=== PATIENT | female | born 1930 | race Hispanic/Latino ===

== ENCOUNTER 2018-10-26 14:06 | Inpatient (IN) | payer MEDICARE, BC ==
--- NOTE | 2018-10-26 15:15 | RAD ---
Date of service: 10/26/2018 HISTORY: dyspnea COMPARISON: 01/07/2016 FINDINGS: LUNGS: The lungs are hyperinflated and there is peribronchial thickening with chronic changes in both lungs. There are chronic changes in both lungs. Focal consolidation. PLEURA: No pleural effusions or pneumothorax. CARDIOVASCULAR: The heart is normal in size. There are aortic atherosclerotic calcifications present. OSSEOUS STRUCTURES: Within normal limits for the patient's age. VISUALIZED UPPER ABDOMEN: Normal. OTHER FINDINGS: None. IMPRESSION: No active pulmonary disease. COPD.
[2018-10-26 15:19] LABS: BASO # 0.02 K/mm3 (0.0-2.0); BASO % 0.1 % (0.0-3.0); HEMOGLOBIN 13.1 g/dL (12.0-16.0); LYMPH # 1.2 (1.2-3.4); LYMPH % 4.5 % (22.0-35.0); MEAN CELL VOLUME 89.4 fl (80.0-105.0); MEAN CORPUSCULAR HEMOGLOBIN 30.2 pg (25.0-35.0); MEAN CORPUSCULAR HGB CONC 33.8 g/dl (31.0-37.0); MEAN PLATELET VOLUME 10.1 fl (7.0-11.0); MONO # 1.6 (0.1-0.6); MONO % 6.1 % (1.0-6.0); PLATELET COUNT 254 10^3/uL (120.0-450.0); RBC 4.34 10^6/uL (3.5-6.1); RED CELL DISTRIBUTION WIDTH 14.3 % (11.5-14.5)
[2018-10-26 15:24] LABS: WHITE BLOOD COUNT 26.6 10^3/uL (4.5-11.0)
[2018-10-26 15:47] LABS: ALB/GLOB RATIO 1.2 (1.1-1.8); ALBUMIN 4.2 g/dL (3.0-4.8); ALT/SGPT 65 U/L (7-56); AST/SGOT 72 U/L (14-36); B-TYPE NATRIURETIC PEPTIDE 14900 pg/mL (0-450); BLOOD UREA NITROGEN 16 mg/dL (7-21); CALCIUM 9.3 mg/dL (8.4-10.5); GFR NON-AFRICAN AMERICAN > 60; TROPONIN I 0.56 ng/mL
[2018-10-26 15:48] LABS: VENOUS BLOOD GAS PO2 31 mm/Hg (30-55); VENOUS BLOOD PH 7.25 (7.32-7.43)
[2018-10-26] MEDS ORDERED: Azithromycin 500MG/NS 250ml 500 MG/250 ML BAG IVPB STA (15:49)
[2018-10-26] MEDS: Albuterol-Ipratrop 3 mg / 0.5 (3 ml) UD IH SCH ×3 (15:52→16:26)
[2018-10-26 15:57] LABS: LARGE PLATELETS PRESENT; LYMPHOCYTE 4 % (22.0-35.0); MONOCYTE 6 % (1.0-6.0); NEUTROPHIL 90 % (50.0-70.0); PLATELET ESTIMATE NORMAL (NORMAL)
--- NOTE | 2018-10-26 16:05 | ED PDOC ---
Arrival/HPI - General Chief Complaint: Shortness Of Breath Time Seen by Provider: 10/26/18 14:32 Historian: Patient - History of Present Illness Narrative History of Present Illness (Text): 10/26/18 16:05 88 year old female, whose past medical history is significant for CHF and emphysema, who presents to the emergency department complaining of acute dyspnea beginning last night. Patient reports chronic edema of legs. Patient endorses seeing his PCP recently, where everything was reported normal. He denies any fever, chills, chest pain, sick contact, recent travel, changes in medications, or any other complaints. Time/Duration: 24 hours Symptom Onset: Gradual Symptom Course: Unchanged Activities at Onset: Rest Context: Home Past Medical History - Provider Review Nursing Documentation Reviewed: Yes - Travel History Have you recently traveled outside [place] w/in the past 3 mons?: No - Infectious Disease Hx of Infectious Diseases: None - Tetanus Immunization Tetanus Immunization: Unknown - Reproductive Menopause: No - Cardiac Hx Pacemaker: No Hx Peripheral Vascular Disease: Yes - Pulmonary Hx Chronic Obstructive Pulmonary Disease (COPD): Yes - Neurological Hx Paralysis: No - HEENT Hx Cataracts: Yes (bilateral 2 yrs ago) - Endocrine/Metabolic Hx Endocrine Disorders: No - Hematological/Oncological Hx Blood Transfusions: No Hx Blood Transfusion Reaction: No - Musculoskeletal/Rheumatological Hx Falls: No - Gastrointestinal Hx Gastrointestinal Disorders: Yes - Genitourinary/Gynecological Hx Genitourinary Disorders: Yes (UTI,URGENCY) Hx Reproductive Disorders: No - Psychiatric Hx Depression: No Hx Emotional Abuse: No Hx Physical Abuse: No Hx Substance Use: No - Anesthesia Hx Anesthesia Reactions: No - Suicidal Assessment Feels Threatened In Home Enviroment: No Family/Social History - Physician Review Nursing Documentation Reviewed: Yes Family/Social History: Unknown Family HX Smoking Status: Former Smoker Hx Alcohol Use: No Hx Substance Use: No Hx Substance Use Treatment: No Allergies/Home Meds Allergies/Adverse Reactions: Allergies No Known Allergies Allergy (Verified 01/07/16 18:03) Home Medications: Home Meds Medication Instructions Recorded Confirmed Furosemide [Lasix] 20 mg PO DAILY 03/22/12 10/26/18 Glimepiride [Amaryl] 2 mg PO DAILY 03/22/12 10/26/18 Simvastatin [Zocor] 40 mg PO DAILY 03/22/12 10/26/18 Aspirin 81 mg PO DAILY 12/12/13 10/26/18 Review of Systems - Physician Review All systems were reviewed & negative as marked: Yes - Review of Systems Constitutional: absent: Fevers Respiratory: SOB. absent: Cough Cardiovascular: absent: Chest Pain Gastrointestinal: absent: Abdominal Pain Physical Exam Vital Signs Reviewed: Yes Vital Signs Temp Pulse Resp BP Pulse Ox 10/26/18 15:49 24 97 10/26/18 15:10 97.6 F 105 H 18 142/72 95 10/26/18 14:29 97.6 F 103 H 24 143/80 99 Temperature: Afebrile Blood Pressure: Normal Pulse: Tachycardic (slightly tachcardic) Respiratory Rate: Normal Appearance: Positive for: Well-Appearing, Non-Toxic, Comfortable Pain Distress: None Mental Status: Positive for: Alert and Oriented X 3 - Systems Exam Head: Present: Atraumatic, Normocephalic Pupils: Present: PERRL Extroacular Muscles: Present: EOMI Conjunctiva: Present: Normal Mouth: Present: Moist Mucous Membranes Neck: Present: Normal Range of Motion Respiratory/Chest: Present: Clear to Auscultation, Good Air Exchange, Wheezes (expiratory wheezes bilaterally ), Tachypneic, Other (labored breathing). No: Respiratory Distress, Accessory Muscle Use Cardiovascular: Present: Regular Rate and Rhythm, Normal S1, S2. No: Murmurs Abdomen: No: Tenderness, Distention, Peritoneal Signs Back: Present: Normal Inspection Upper Extremity: Present: Normal Inspection. No: Cyanosis, Edema Lower Extremity: Present: Normal Inspection, Other (pitting edema from ankles to mid calf). No: Edema Neurological: Present: Speech Normal Skin: Present: Warm, Dry, Normal Color. No: Rashes Psychiatric: Present: Alert, Oriented x 3, Normal Insight, Normal Concentration Medical Decision Making ED Course and Treatment: 10/26/18 16:03 Impression: 88 year old female presents to the emergency department complaining of acute SOB since last night. Differential Diagnosis included but are not limited to: --COPD exacerbation --PNA --Sepsis Plan: -- Chest X-ray -- CT chest -- Aspirin -- Albuterol -- Labs --Rocephin -- Blood culture -- Urine culture -- IV Fluids -- Zithromax -- SOLU-Medrol -- VBG shock -- Reassess and disposition Prior Visits: Notes and results from previous visits were reviewed. Progress Notes: 10/26/18 16:10 Put patient on BIPAP immediately after noting accessory muscle use and tachypnea. 10/26/18 18:00 Labs reviewed with leukocytosis of 26 with hyponatremia to 127. CXR reveals multi-focal PNA. Rocephin and azithromycin ordered. Discussed case with Dr. Brooks(PCP) who accepts patient onto her service and requests the service of Dr. Alba(infectious disease) & Dr. Mott(nephrology)as consult. - Lab Interpretations Lab Results: pO2 31 mm/Hg (30-55) 10/26/18 15:44 VBG pH 7.25 (7.32-7.43) L 10/26/18 15:44 VBG pCO2 63.0 (40-60) H 10/26/18 15:44 VBG HCO3 27.6 mmol/l (21-28) 10/26/18 15:44 VBG Total CO2 29.5 mmol.L (22-28) H 10/26/18 15:44 VBG O2 Sat (Calc) 54.5 % (40-65) 10/26/18 15:44 VBG Base Excess -1.0 mmol/L (0.0-2.0) L 10/26/18 15:44 VBG Potassium 4.8 mmol/L (3.6-5.2) 10/26/18 15:44 Sodium 128.0 mmol/L (132-148) L 10/26/18 15:44 Chloride 91.0 mmol/L (98-107) L 10/26/18 15:44 Glucose 368 mg/dl (65-105) H 10/26/18 15:44 Lactate 2.9 mmol/L (0.7-2.1) H 10/26/18 15:44 FiO2 21.0 % 10/26/18 15:44 Crit Value Called To Tricia onofre 10/26/18 15:44 Crit Value Called By Cristina cuevas 10/26/18 15:44 Blood Gas Notified Time 1548 10/26/18 15:44 Troponin I 0.56 ng/mL H* D 10/26/18 15:05 NT-Pro-B Natriuret Pep 81176 pg/mL (0-450) H 10/26/18 15:05 Total Bilirubin 0.8 mg/dL (0.2-1.3) 10/26/18 15:05 AST 72 U/L (14-36) H 10/26/18 15:05 ALT 65 U/L (7-56) H 10/26/18 15:05 Alkaline Phosphatase 110 U/L (38-126) 10/26/18 15:05 Total Protein 7.6 g/dL (5.8-8.3) 10/26/18 15:05 Albumin 4.2 g/dL (3.0-4.8) 10/26/18 15:05 Globulin 3.4 gm/dL 10/26/18 15:05 Albumin/Globulin Ratio 1.2 (1.1-1.8) 10/26/18 15:05 10/26/18 15:05 10/26/18 15:05 Lab Results 10/26/18 15:44: pO2 31, VBG pH 7.25 L, VBG pCO2 63.0 H, VBG HCO3 27.6, VBG Total CO2 29.5 H, VBG O2 Sat (Calc) 54.5, VBG Base Excess -1.0 L, VBG Potassium 4.8, Glucose 368 H, Lactate 2.9 H, FiO2 21.0, Crit Value Called To Tricia onofre, Crit Value Called By Cristina cuevas, Blood Gas Notified Time 1548, Sodium 128.0 L, Chloride 91.0 L, Venous Blood Potassium 4.8 10/26/18 15:05: Sodium 128 L, Potassium 4.9, Chloride 91 L, Carbon Dioxide 26, Anion Gap 16, BUN 16, Creatinine 0.7, Est GFR ( Amer) > 60, Est GFR (Non- Af Amer) > 60, Random Glucose 343 H*, Calcium 9.3, Magnesium 2.0, Total Bilirub in 0.8, AST 72 H, ALT 65 H, Alkaline Phosphatase 110, Troponin I 0.56 H* D, NT-Pro-B Natriuret Pep 27178 H, Total Protein 7.6, Albumin 4.2, Globulin 3.4, Albumin/Globulin Ratio 1.2 10/26/18 15:05: WBC 26.6 H*, RBC 4.34, Hgb 13.1, Hct 38.8, MCV 89.4, MCH 30.2, MCHC 33.8, RDW 14.3, Plt Count 254, MPV 10.1, Neut % (Auto) 89.3 H, Lymph % ( Auto) 4.5 L, Deuel % (Auto) 6.1 H, Eos % (Auto) 0.0 L, Baso % (Auto) 0.1, Lymph # (Auto) 1.2, Deuel # (Auto) 1.6 H, Eos # (Auto) 0.0, Baso # (Auto) 0.02, Absolute Neuts (auto) 23.70 H, Neutrophils % (Manual) 90 H, Lymphocytes % (Manual) 4 L, Monocytes % (Manual) 6, Platelet Evaluation Normal, Large Platelets Present I have reviewed the lab results: Yes - RAD Interpretation Narrative RAD Interpretations (Text): 10/26/18 16:48 Chest X-ray shows: No active pulmonary disease. COPD. Radiology Orders: 10/26/18 14:38 CHEST PORTABLE [RAD] Stat 10/26/18 15:45 CHEST W/O CONTRAST [CT] Stat Cleaner And Polisher: Radiologist - EKG Interpretation EKG Interpretation (Text): 10/26/18 18:10 EKG reviewed, shows: Sinus tachycardia with fusion complexes at 103 bpm, No ST elevations. Interpreted by ED Physician: Yes - Medication Orders Current Medication Orders: Albuterol/Ipratropium (Duoneb 3 Mg/0.5 Mg (3 Ml) Ud) 3 ml IH Q15M FABRIZIO Stop: 10/26/18 16:16 Last Admin: 10/26/18 15:52 Dose: 3 ml Azithromycin (Zithromax 500mg In Ns) 500 mg in 250 mls @ 167 mls/hr IVPB STAT STA; Protocol Stop: 10/26/18 17:18 Discontinued Medications Aspirin (Aspirin) 325 mg PO STAT STA Stop: 10/26/18 15:48 Methylprednisolone (Solu-Medrol) 125 mg IVP STAT STA Stop: 10/26/18 15:34 Last Admin: 10/26/18 15:53 Dose: 125 mg IVP Administration Document 10/26/18 15:53 ADAIR (Rec: 10/26/18 15:53 ADAIR [id number]) Charges for Administration # of IVP Administrations 1 - Scribe Statement The provider has reviewed the documentation as recorded by the Scribe Busayo Douglas Provider Deyvi Attestation: All medical record entries made by the Deyvi were at my direction and personally dictated by me. I have reviewed the chart and agree that the record accurately reflects my personal performance of the history, physical exam, medical decision making, and the department course for this patient. I have also personally directed, reviewed, and agree with the discharge instructions and disposition. Disposition/Present on Arrival - Present on Arrival Any Indicators Present on Arrival: No History of DVT/PE: No History of Uncontrolled Diabetes: No Urinary Catheter: No History of Decub. Ulcer: No History Surgical Site Infection Following: None - Disposition Have Diagnosis and Disposition been Completed?: Yes Diagnosis: PNA (pneumonia), Respiratory distress Disposition: HOSPITALIZED Disposition Time: 18:00 Patient Plan: Admission, Telemetry Condition: GUARDED
[2018-10-26] MEDS ORDERED: Insulin Regular 1 UNITS/0.01 ML ML SC STA (16:53)
--- NOTE | 2018-10-26 17:37 | CT ---
Date of service: 10/26/2018 PROCEDURE: CT Chest without contrast HISTORY: possible inflitrate COMPARISON: 01/08/2016 CT thorax. 10/26/2018 single-view chest TECHNIQUE: Contiguous axial images were obtained through the chest without intravenous contrast enhancement. Sagittal and coronal reconstructions were performed. Radiation dose: Total exam DLP = 207.22 mGy-cm. This CT exam was performed using one or more of the following dose reduction techniques: Automated exposure control, adjustment of the mA and/or kV according to patient size, and/or use of iterative reconstruction technique. FINDINGS: LUNGS: Multifocal infiltrates left lung greater than right. Underlying manifestations of COPD including hyperinflation and bullous formation. MEDIASTINUM: Unremarkable thoracic aorta. No aneurysm. Normal sized heart. Dilated main pulmonary artery 3.6 cm consistent with pulmonary arterial hypertension. No lymphadenopathy. Atherosclerotic calcification and mural plaque present. Findings are seen throughout the aorta which is non aneurysmal and extend into the upper abdominal aorta. PLEURA: Trace bilateral pleural effusions. BONES: No fracture. No destructive lesion. UPPER ABDOMEN: Grossly unremarkable. OTHER FINDINGS: None. IMPRESSION: Atypical multifocal infiltrates (likely viral), perhaps lower airway disease/bronchitic change superimposed upon severe COPD.
--- NOTE | 2018-10-26 19:19 | CARD ---
APPROVED REPORT Date of service: 10/26/2018 EKG Measurement Heart [id number] <Conclusion> Sinus tachycardia with fusion complexes Possible Left atrial enlargement Left axis deviation Low voltage QRS Inferior infarct, age undetermined Cannot rule out Anteroseptal infarct, age undetermined T wave abnormality, consider lateral ischemia Abnormal ECG
[2018-10-26 19:51] LABS: VENOUS BLOOD GAS BASE EXCESS -7.4 mmol/L (0.0-2.0); VENOUS BLOOD GAS PO2 174 mm/Hg (30-55); VENOUS BLOOD PH 7.22 (7.32-7.43)
[2018-10-26] MEDS ORDERED: Albuterol-Ipratrop 3 mg / 0.5 (3 ml) UD IH PRN (20:03)
[2018-10-26] MEDS: Insulin Reg-LOW-Coverage SC SCH (23:01)
[2018-10-26] MEDS: MethylPREDNISolone 40 mg Vial IV SCH (23:02)
[2018-10-26 23:16] LABS: TROPONIN I 0.54 ng/mL
--- NOTE | 2018-10-26 23:31 | HP ---
DATE OF EXAM: 10/26/2016 HISTORY OF PRESENT ILLNESS: The patient is an 88-year-old came to emergency room because of increasing shortness of breath since last night, complaints of feeling weak, tired, short of breath. No documented fever or chills, does complain of back pain, does complain of bilateral leg swelling. PAST MEDICAL HISTORY: Significant for: 1. COPD. 2. Insulin-dependant diabetes. 3. Peripheral vascular disease. ALLERGIES: SHE IS NOT ALLERGIC TO ANY MEDICATIONS. MEDICATIONS AT HOME: She is on: 1. Glimepiride 2 mg daily. 2. Lasix 20 mg daily. 3. Simvastatin 40 mg daily. 4. Aspirin 81 daily. SOCIAL HISTORY: She lives with her family, she is used to be heavy smoker in the past, but quit couple of years ago. REVIEW OF SYSTEMS: Significant for cough congestion, shortness of breath, more so on minimal walking, complaint of feeling weak and dizzy at times. PHYSICAL EXAMINATION GENERAL: She is awake and alert, able to communicate. VITAL SIGNS: She is afebrile. Pulse 100, respirations 18, blood pressure 113/63. LUNGS: Bilateral expiratory rhonchi. Soft, crackle at bases. HEART: S1 and S2 is audible. ABDOMEN: Soft, nontender. No rebound. No guarding. NEUROLOGIC: The patient is awake and alert, able to communicate. LABORATORY DATA: WBC 26.6, hemoglobin 13, hematocrit 38, platelet 254. D-dimer blow 200. Chemistry; sodium 128, potassium 4.9, chloride 91, CO2 of 26, BUN 16, creatinine 0.7, blood sugar 343, magnesium 2.0. AST 72, ALT 65. Troponin 0.56. LFTs are within normal limit otherwise. She had CT scan of the chest done that shows atypical multifocal infiltrate and COPD changes. She had EKG done that shows sinus tachycardia with the fusion complexes, left atrial enlargement, left axis deviation, and possible inferior infarct, age undetermined. ASSESSMENT: 1. Chronic obstructive pulmonary exacerbation. 2. Multifocal pneumonia. 3. Non-ST elevation myocardiac infarction. 4. Hypertension. 5. Hyperlipidemia. PLAN: The patient will be admitted on telemetry. We will start her on aspirin, beta-pat, give her IV antibiotic, give her nebulizer treatment, Cardiology consult by Dr. West and monitor blood sugar. We will follow up the patient in a.m. Sonya Brooks MD
[2018-10-26 23:46] VITALS: BMI 17.9
[2018-10-27] MEDS: Cefepime IV 2 gm in NS 2 GM/100 ML BAG IVPB SCH ×2 (01:00→23:00)
[2018-10-27] MEDS: Albuterol-Ipratrop 3 mg / 0.5 (3 ml) UD IH SCH ×4 (01:49→20:33)
[2018-10-27 04:13] LABS: PH,URINE 5.5 (4.7-8.0); URINE BILIRUBIN NEGATIVE (NEGATIVE); URINE BLOOD TRACE-INTACT (NEGATIVE); URINE GLUCOSE (UA) 500 mg/dL (NEGATIVE); URINE LEUKOCYTE ESTERASE NEGATIVE Leu/uL (NEGATIVE); URINE PROTEIN 100 mg/dL (<30 mg/dL); URINE UROBILINOGEN 0.2 E.U./dL (<1 E.U./dL)
[2018-10-27 04:14] LABS: URINE APPEARANCE CLEAR (CLEAR); URINE COLOR YELLOW (YELLOW)
[2018-10-27 04:26] LABS: URINE RBC 0 - 2 /hpf (0-2)
[2018-10-27 04:27] LABS: URINE BACTERIA SMALL /hpf; URINE HYALINE CAST 0 - 2 /hpf
[2018-10-27] MEDS: MethylPREDNISolone 40 mg Vial IV SCH ×3 (05:30→21:53)
[2018-10-27] MEDS: Metoprolol Succinate 25 mg XL Tab PO SCH (08:19)
[2018-10-27] MEDS: Insulin Reg-LOW-Coverage SC SCH ×4 (08:30→21:52)
[2018-10-27 08:53] LABS: ALB/GLOB RATIO 1.1 (1.1-1.8); ALBUMIN 3.3 g/dL (3.0-4.8); ALT/SGPT 44 U/L (7-56); AST/SGOT 36 U/L (14-36); BLOOD UREA NITROGEN 24 mg/dL (7-21); CALCIUM 8.9 mg/dL (8.4-10.5); GFR NON-AFRICAN AMERICAN 59; TROPONIN I 0.76 ng/mL
--- NOTE | 2018-10-27 09:32 | CP.PCM.CON ---
<Raleigh Melara - Last Filed: 10/27/18 09:29> History of Present Illness - History of Present Illness History of Present Illness: Raleigh Melara D.O. PGY-3, Internal Medicine Resident, Infectious Disease Consultation Note 88-year-old female with a past medical history of heart failure and emphysema who presented for complaints of acute shortness of breath for approximately 1 day. Infectious disease consultation was requested for sepsis. Patient was seen and examined at bedside. Patient states that she had seen her doctor on 10/11 and had received a Medrol Dosepak for issues similar to now. Patient states that she gradually got worse and worse despite the Medrol Dosepak to the point that she felt that she had come in because she was so short of breath. Patient had an extensive history of smoking in the past but quit many years ago. Patient states that at home she had a dry cough. No purulent sputum. Admits that she may have been febrile but did not take her temperature. Denies any chills, nausea, vomiting, diarrhea, constipation, dysuria, urinary frequency or other concerns. Review of Systems - Review of Systems All systems: reviewed and no additional remarkable complaints except (as per HPI) Past Patient History - Infectious Disease Hx of Infectious Diseases: None - Tetanus Immunizations Tetanus Immunization: Unknown - Past Social History Smoking Status: Former Smoker - CARDIAC Hx Pacemaker: No Hx Peripheral Vascular Disease: Yes - PULMONARY Hx Chronic Obstructive Pulmonary Disease (COPD): Yes - NEUROLOGICAL Hx Paralysis: No - HEENT Hx Cataracts: Yes (bilateral 2 yrs ago) - RENAL Hx Chronic Kidney Disease: No - ENDOCRINE/METABOLIC Hx Endocrine Disorders: No - HEMATOLOGICAL/ONCOLOGICAL Hx Blood Transfusions: No Hx Blood Transfusion Reaction: No - INTEGUMENTARY Hx Dermatological Problems: No - MUSCULOSKELETAL/RHEUMATOLOGICAL Hx Falls: No - GASTROINTESTINAL Hx Gastrointestinal Disorders: Yes - GENITOURINARY/GYNECOLOGICAL Hx Genitourinary Disorders: Yes (UTI,URGENCY) Hx Reproductive Disorders: No - PSYCHIATRIC Hx Depression: No Hx Emotional Abuse: No Hx Physical Abuse: No Hx Substance Use: No - SURGICAL HISTORY Hx Surgeries: Yes (right leg stent) - ANESTHESIA Hx Anesthesia Reactions: No Meds Allergies/Adverse Reactions: Allergies Allergy/AdvReac Type Severity Reaction Status Date / Time No Known Allergies Allergy Verified 01/07/16 18:03 - Medications Medications: Current Medications Acetaminophen (Tylenol 325mg Tab) 650 mg PO Q6H PRN PRN Reason: Fever >100.4 F Albuterol/Ipratropium (Duoneb 3 Mg/0.5 Mg (3 Ml) Ud) 3 ml IH Q2H PRN PRN Reason: Shortness of Breath Albuterol/Ipratropium (Duoneb 3 Mg/0.5 Mg (3 Ml) Ud) 3 ml IH [id number] [facility] Last Admin: 10/27/18 07:52 Dose: 3 ml Aspirin (Ecotrin) 81 mg PO DAILY [facility] Atorvastatin Calcium (Lipitor) 10 mg PO DIN [facility] Enoxaparin Sodium (Lovenox) 30 mg SC DAILY [facility]; Protocol Azithromycin (Zithromax 500mg In Ns) 500 mg in 250 mls @ 167 mls/hr IVPB DAILY [facility]; Protocol Cefepime HCl (Maxipime 2gm) 2 gm in 100 mls @ 100 mls/hr IVPB Q24H [facility]; Protocol Stop: 10/31/18 23:46 Last Admin: 10/27/18 01:00 Dose: 100 mls/hr Insulin Human Regular (Humulin R Low) 0 units SC ACHS [facility]; Protocol Last Admin: 10/27/18 08:30 Dose: 5 units Methylprednisolone (Solu-Medrol) 40 mg IV Q8 [facility] Last Admin: 10/27/18 05:30 Dose: 40 mg Metoprolol Succinate (Toprol Xl) 25 mg PO BRK [facility] Last Admin: 10/27/18 08:19 Dose: 25 mg Ondansetron HCl (Zofran Inj) 4 mg IVP Q6H PRN PRN Reason: Nausea/Vomiting Pantoprazole Sodium (Protonix Inj) 40 mg IVP DAILY [facility] Physical Exam - Constitutional Appears: Non-toxic, No Acute Distress, Chronically Ill - Head Exam Head Exam: ATRAUMATIC, NORMOCEPHALIC - Eye Exam Eye Exam: EOMI. absent: Scleral icterus - ENT Exam ENT Exam: Mucous Membranes Moist - Neck Exam Neck exam: Positive for: Normal Inspection. Negative for: Lymphadenopathy - Respiratory Exam Respiratory Exam: Wheezes (audible without stethoscope) Additional comments: poor air entry - Cardiovascular Exam Cardiovascular Exam: +S1, +S2 - GI/Abdominal Exam GI & Abdominal Exam: Normal Bowel Sounds, Soft. absent: Tenderness - Extremities Exam Extremities exam: Negative for: calf tenderness, pedal edema - Neurological Exam Neurological exam: Alert - Skin Skin Exam: Dry, Warm Results - Vital Signs Recent Vital Signs: Last Vital Signs Temp 98 F 10/27/18 06:00 Pulse 93 H 10/27/18 08:19 Resp 19 10/27/18 06:00 BP 116/72 10/27/18 08:19 Pulse Ox 97 10/27/18 06:00 - Labs Result Diagrams: 10/26/18 15:05 10/27/18 06:30 Labs: Laboratory Results - last 24 hr 10/26/18 10/26/18 10/26/18 15:05 15:05 15:44 WBC 26.6 H* RBC 4.34 Hgb 13.1 Hct 38.8 MCV 89.4 MCH 30.2 MCHC 33.8 RDW 14.3 Plt Count 254 MPV 10.1 Neut % (Auto) 89.3 H Lymph % (Auto) 4.5 L [place] % (Auto) 6.1 H Eos % (Auto) 0.0 L Baso % (Auto) 0.1 Lymph # (Auto) 1.2 [place] # (Auto) 1.6 H Eos # (Auto) 0.0 Baso # (Auto) 0.02 Absolute Neuts (auto) 23.70 H Neutrophils % (Manual) 90 H Lymphocytes % (Manual) 4 L Monocytes % (Manual) 6 Platelet Evaluation Normal Large Platelets Present D-Dimer, Quantitative pO2 31 VBG pH 7.25 L VBG pCO2 63.0 H VBG HCO3 27.6 VBG Total CO2 29.5 H VBG O2 Sat (Calc) 54.5 VBG Base Excess -1.0 L VBG Potassium 4.8 Glucose 368 H Lactate 2.9 H FiO2 21.0 Crit Value Called To Tricia onofre Crit Value Called By Cristina cuevas Blood Gas Notified Time 1548 Sodium 128 L 128.0 L Potassium 4.9 Chloride 91 L 91.0 L Carbon Dioxide 26 Anion Gap 16 BUN 16 Creatinine 0.7 Est GFR ( Amer) > 60 Est GFR (Non-Af Amer) > 60 POC Glucose (mg/dL) Random Glucose 343 H* Calcium 9.3 Magnesium 2.0 Total Bilirubin 0.8 AST 72 H ALT 65 H Alkaline Phosphatase 110 Troponin I 0.56 H* D NT-Pro-B Natriuret Pep 92689 H Total Protein 7.6 Albumin 4.2 Globulin 3.4 Albumin/Globulin Ratio 1.2 Triglycerides Cholesterol LDL Cholesterol Direct HDL Cholesterol Free T4 TSH 3rd Generation Venous Blood Potassium 4.8 Urine Color Urine Appearance Urine pH Ur Specific [place] Urine Protein Urine Glucose (UA) Urine Ketones Urine Blood Urine Nitrate Urine Bilirubin Urine Urobilinogen Ur Leukocyte Esterase Urine RBC Urine WBC Ur Epithelial Cells Urine Bacteria Hyaline Casts 10/26/18 10/26/18 10/26/18 16:30 18:09 19:30 WBC RBC Hgb Hct MCV MCH MCHC RDW Plt Count MPV Neut % (Auto) Lymph % (Auto) [place] % (Auto) Eos % (Auto) Baso % (Auto) Lymph # (Auto) [place] # (Auto) Eos # (Auto) Baso # (Auto) Absolute Neuts (auto) Neutrophils % (Manual) Lymphocytes % (Manual) Monocytes % (Manual) Platelet Evaluation Large Platelets D-Dimer, Quantitative < 200 pO2 174 H VBG pH 7.22 L VBG pCO2 50.0 VBG HCO3 20.5 L VBG Total CO2 22.0 VBG O2 Sat (Calc) 101.1 H VBG Base Excess -7.4 L VBG Potassium 4.4 Glucose 402 H* Lactate 4.5 H* FiO2 21.0 Crit Value Called To Mayra romero Crit Value Called By Etq Blood Gas Notified Time 1950 Sodium 131.0 L Potassium Chloride 96.0 L Carbon Dioxide Anion Gap BUN Creatinine Est GFR ( Amer) Est GFR (Non-Af Amer) POC Glucose (mg/dL) 336 H Random Glucose Calcium Magnesium Total Bilirubin AST ALT Alkaline Phosphatase Troponin I NT-Pro-B Natriuret Pep Total Protein Albumin Globulin Albumin/Globulin Ratio Triglycerides Cholesterol LDL Cholesterol Direct HDL Cholesterol Free T4 TSH 3rd Generation Venous Blood Potassium 4.4 Urine Color Urine Appearance Urine pH Ur Specific [place] Urine Protein Urine Glucose (UA) Urine Ketones Urine Blood Urine Nitrate Urine Bilirubin Urine Urobilinogen Ur Leukocyte Esterase Urine RBC Urine WBC Ur Epithelial Cells Urine Bacteria Hyaline Casts 10/26/18 10/26/18 10/27/18 22:06 22:45 03:00 WBC RBC Hgb Hct MCV MCH MCHC RDW Plt Count MPV Neut % (Auto) Lymph % (Auto) [place] % (Auto) Eos % (Auto) Baso % (Auto) Lymph # (Auto) [place] # (Auto) Eos # (Auto) Baso # (Auto) Absolute Neuts (auto) Neutrophils % (Manual) Lymphocytes % (Manual) Monocytes % (Manual) Platelet Evaluation Large Platelets D-Dimer, Quantitative pO2 VBG pH VBG pCO2 VBG HCO3 VBG Total CO2 VBG O2 Sat (Calc) VBG Base Excess VBG Potassium Glucose Lactate FiO2 Crit Value Called To Crit Value Called By Blood Gas Notified Time Sodium Potassium Chloride Carbon Dioxide Anion Gap BUN Creatinine Est GFR ( Amer) Est GFR (Non-Af Amer) POC Glucose (mg/dL) 363 H Random Glucose Calcium Magnesium Total Bilirubin AST ALT Alkaline Phosphatase Troponin I 0.54 H* NT-Pro-B Natriuret Pep Total Protein Albumin Globulin Albumin/Globulin Ratio Triglycerides 51 Cholesterol 194 LDL Cholesterol Direct 89 HDL Cholesterol 85 H Free T4 TSH 3rd Generation Venous Blood Potassium Urine Color Yellow Urine Appearance Clear Urine pH 5.5 Ur Specific [place] >= 1.030 Urine Protein 100 H Urine Glucose (UA) 500 H Urine Ketones Negative Urine Blood Trace-intact H Urine Nitrate Negative Urine Bilirubin Negative Urine Urobilinogen 0.2 Ur Leukocyte Esterase Negative Urine RBC 0 - 2 Urine WBC 5 - 10 H Ur Epithelial Cells 1 - 3 Urine Bacteria Small Hyaline Casts 0 - 2 10/27/18 10/27/18 10/27/18 06:30 06:30 07:25 WBC RBC Hgb Hct MCV MCH MCHC RDW Plt Count MPV Neut % (Auto) Lymph % (Auto) [place] % (Auto) Eos % (Auto) Baso % (Auto) Lymph # (Auto) [place] # (Auto) Eos # (Auto) Baso # (Auto) Absolute Neuts (auto) Neutrophils % (Manual) Lymphocytes % (Manual) Monocytes % (Manual) Platelet Evaluation Large Platelets D-Dimer, Quantitative pO2 VBG pH VBG pCO2 VBG HCO3 VBG Total CO2 VBG O2 Sat (Calc) VBG Base Excess VBG Potassium Glucose Lactate FiO2 Crit Value Called To Crit Value Called By Blood Gas Notified Time Sodium 130 L Potassium 5.6 H* Chloride 94 L Carbon Dioxide 24 Anion Gap 17 BUN 24 H Creatinine 0.9 Est GFR ( Amer) > 60 Est GFR (Non-Af Amer) 59 POC Glucose (mg/dL) 370 H Random Glucose 356 H* Calcium 8.9 Magnesium Total Bilirubin 0.6 AST 36 D ALT 44 Alkaline Phosphatase 83 Troponin I 0.76 H* D NT-Pro-B Natriuret Pep Total Protein 6.2 Albumin 3.3 Globulin 2.9 Albumin/Globulin Ratio 1.1 Triglycerides Cholesterol LDL Cholesterol Direct HDL Cholesterol Free T4 2.00 TSH 3rd Generation 0.49 Venous Blood Potassium Urine Color Urine Appearance Urine pH Ur Specific [place] Urine Protein Urine Glucose (UA) Urine Ketones Urine Blood Urine Nitrate Urine Bilirubin Urine Urobilinogen Ur Leukocyte Esterase Urine RBC Urine WBC Ur Epithelial Cells Urine Bacteria Hyaline Casts Assessment & Plan - Assessment and Plan (Free Text) Assessment: 88-year-old female with a past medical history of heart failure and emphysema who presented for complaints of acute shortness of breath for approximately 1 day. Infectious disease consultation was requested for sepsis. Plan: Sepsis (SIRS 3/4 with tachycardia, tachypnea, leukocytosis) likely from community-acquired multifocal pneumonia Emphysema/COPD Insulin-dependent diabetes Peripheral vascular disease Elevated BNP and positive troponins History of heart failure CT reviewed by me as well as radiologist read for atypical multifocal pneumonia Empirically on cefepime and azithromycin Pancultured Legionella antigen pending Pro-calcitonin pending Receiving nebulizers as needed Discussed with respiratory therapy to receive treatment now Recommend software engineer mobile evaluation given elevated troponins and elevated BNP We will follow with you Patient was seen and examined with attending physician Thank you for the pleasure participating in the care of this interesting patient - Date & Time Date: 10/27/18 Time: 07:05 <Ashok Martinez - Last Filed: 10/27/18 22:35> Meds - Medications Medications: Current Medications Acetaminophen (Tylenol 325mg Tab) 650 mg PO Q6H PRN PRN Reason: Fever >100.4 F Albuterol/Ipratropium (Duoneb 3 Mg/0.5 Mg (3 Ml) Ud) 3 ml IH Q2H PRN PRN Reason: Shortness of Breath Last Admin: 10/27/18 11:45 Dose: 3 ml Albuterol/Ipratropium (Duoneb 3 Mg/0.5 Mg (3 Ml) Ud) 3 ml IH [id number] [facility] Last Admin: 10/27/18 20:33 Dose: 3 ml Aspirin (Ecotrin) 81 mg PO DAILY [facility] Last Admin: 10/27/18 10:08 Dose: 81 mg Atorvastatin Calcium (Lipitor) 10 mg PO DIN [facility] Last Admin: 03/27/19 17:05 Dose: 10 mg Clopidogrel Bisulfate (Plavix) 75 mg PO DAILY [facility] Last Admin: 10/27/18 14:36 Dose: 75 mg Enoxaparin Sodium (Lovenox) 40 mg SC BID [facility]; Protocol Last Admin: 10/27/18 21:56 Dose: 40 mg Azithromycin (Zithromax 500mg In Ns) 500 mg in 250 mls @ 167 mls/hr IVPB DAILY [facility]; Protocol Last Admin: 10/27/18 10:08 Dose: 167 mls/hr Cefepime HCl (Maxipime 2gm) 2 gm in 100 mls @ 100 mls/hr IVPB Q24H [facility]; Protocol Stop: 10/31/18 23:46 Last Admin: 10/27/18 01:00 Dose: 100 mls/hr Insulin Human Regular (Humulin R Low) 0 units SC ACHS [facility]; Protocol Last Admin: 10/27/18 21:52 Dose: 4 units Methylprednisolone (Solu-Medrol) 40 mg IV Q8 [facility] Last Admin: 10/27/18 21:53 Dose: 40 mg Metoprolol Succinate (Toprol Xl) 25 mg PO BRK [facility] Last Admin: 10/27/18 08:19 Dose: 25 mg Ondansetron HCl (Zofran Inj) 4 mg IVP Q6H PRN PRN Reason: Nausea/Vomiting Pantoprazole Sodium (Protonix Ec Tab) 40 mg PO ACB [facility] Results - Vital Signs Recent Vital Signs: Last Vital Signs Temp 98.4 F 10/27/18 19:05 Pulse 109 H 10/27/18 19:05 Resp 19 10/27/18 19:05 BP 122/70 10/27/18 19:05 Pulse Ox 97 10/27/18 06:00 - Labs Result Diagrams: 10/26/18 15:05 10/27/18 06:30 Labs: Laboratory Results - last 24 hr 10/26/18 10/26/18 10/26/18 18:09 22:45 22:45 Sodium Potassium Chloride Carbon Dioxide Anion Gap BUN Creatinine Est GFR ( Amer) Est GFR (Non-Af Amer) POC Glucose (mg/dL) 336 H Random Glucose Hemoglobin A1c Calcium Total Bilirubin AST ALT Alkaline Phosphatase Troponin I 0.54 H* Total Protein Albumin Globulin Albumin/Globulin Ratio Triglycerides 51 Cholesterol 194 LDL Cholesterol Direct 89 HDL Cholesterol 85 H Procalcitonin 0.15 L Free T4 TSH 3rd Generation Urine Color Urine Appearance Urine pH Ur Specific [place] Urine Protein Urine Glucose (UA) Urine Ketones Urine Blood Urine Nitrate Urine Bilirubin Urine Urobilinogen Ur Leukocyte Esterase Urine RBC Urine WBC Ur Epithelial Cells Urine Bacteria Hyaline Casts Ur L.pneumophila Ag 10/27/18 10/27/18 10/27/18 03:00 03:00 06:30 Sodium 130 L Potassium 5.6 H* Chloride 94 L Carbon Dioxide 24 Anion Gap 17 BUN 24 H Creatinine 0.9 Est GFR ( Amer) > 60 Est GFR (Non-Af Amer) 59 POC Glucose (mg/dL) Random Glucose 356 H* Hemoglobin A1c Calcium 8.9 Total Bilirubin 0.6 AST 36 D ALT 44 Alkaline Phosphatase 83 Troponin I 0.76 H* D Total Protein 6.2 Albumin 3.3 Globulin 2.9 Albumin/Globulin Ratio 1.1 Triglycerides Cholesterol LDL Cholesterol Direct HDL Cholesterol Procalcitonin Free T4 TSH 3rd Generation Urine Color Yellow Urine Appearance Clear Urine pH 5.5 Ur Specific [place] >= 1.030 Urine Protein 100 H Urine Glucose (UA) 500 H Urine Ketones Negative Urine Blood Trace-intact H Urine Nitrate Negative Urine Bilirubin Negative Urine Urobilinogen 0.2 Ur Leukocyte Esterase Negative Urine RBC 0 - 2 Urine WBC 5 - 10 H Ur Epithelial Cells 1 - 3 Urine Bacteria Small Hyaline Casts 0 - 2 Ur L.pneumophila Ag Negative 10/27/18 10/27/18 10/27/18 06:30 06:30 07:25 Sodium Potassium Chloride Carbon Dioxide Anion Gap BUN Creatinine Est GFR ( Amer) Est GFR (Non-Af Amer) POC Glucose (mg/dL) 370 H Random Glucose Hemoglobin A1c 7.8 H Calcium Total Bilirubin AST ALT Alkaline Phosphatase Troponin I Total Protein Albumin Globulin Albumin/Globulin Ratio Triglycerides Cholesterol LDL Cholesterol Direct HDL Cholesterol Procalcitonin Free T4 2.00 TSH 3rd Generation 0.49 Urine Color Urine Appearance Urine pH Ur Specific [place] Urine Protein Urine Glucose (UA) Urine Ketones Urine Blood Urine Nitrate Urine Bilirubin Urine Urobilinogen Ur Leukocyte Esterase Urine RBC Urine WBC Ur Epithelial Cells Urine Bacteria Hyaline Casts Ur L.pneumophila Ag 10/27/18 10/27/18 10/27/18 11:58 16:17 21:08 Sodium Potassium Chloride Carbon Dioxide Anion Gap BUN Creatinine Est GFR ( Amer) Est GFR (Non-Af Amer) POC Glucose (mg/dL) 397 H 326 H 382 H Random Glucose Hemoglobin A1c Calcium Total Bilirubin AST ALT Alkaline Phosphatase Troponin I Total Protein Albumin Globulin Albumin/Globulin Ratio Triglycerides Cholesterol LDL Cholesterol Direct HDL Cholesterol Procalcitonin Free T4 TSH 3rd Generation Urine Color Urine Appearance Urine pH Ur Specific [place] Urine Protein Urine Glucose (UA) Urine Ketones Urine Blood Urine Nitrate Urine Bilirubin Urine Urobilinogen Ur Leukocyte Esterase Urine RBC Urine WBC Ur Epithelial Cells Urine Bacteria Hyaline Casts Ur L.pneumophila Ag Assessment & Plan - Assessment and Plan (Free Text) Plan: Infectious Diseases Attending Physician Attestation Patient seen and examined at bedside, discussed with medical records auditor. I have reviewed the HPI, ROS, Family, Medical, Social and personal histories, physical examination findings. I have also reviewed the pertinent labs and diagnostic imaging. I have fully participiated in the care of this patient. I agree with the above findings, assessment, plan. In addition, we have started Cefepime and Zithromax for sepsis due to multifocal CAP. Follow up blood, sputum cx, urine Legionella Ag, PCT and will continue to monitor clinically.
[2018-10-27] MEDS ORDERED: cefTRIAXone 1 gm 1 GM/100 ML BAG IVPB SCH (10:00)
[2018-10-27] MEDS ORDERED: Enoxaparin 30 mg Syringe SC SCH (10:00)
[2018-10-27] MEDS: Azithromycin 500MG/NS 250ml 500 MG/250 ML BAG IVPB SCH (10:08)
--- NOTE | 2018-10-27 15:21 | PN ---
DATE: 10/27/2018 SUBJECTIVE: The patient is 88 years old, seen and examined, lying in bed, has shortness of breath the patient was treated as outpatient by her PMD with Z-Daryl and steroids with no significant relief. She had x-ray of chest done. At that point it was negative. However, she had CT scan of the chest done that showed bilateral pneumonia, multifocal. PHYSICAL EXAMINATION: GENERAL: She is awake and alert, able to communicate, short of breath. VITAL SIGNS: She is afebrile, pulse 93, respirations 19, blood pressure 116/72. LUNGS: Bilateral fair airflow. No rhonchi or crackle. HEART: S1 and S2 audible. ABDOMEN: Soft. Nontender. No rebound, no guarding. NEUROLOGICAL: The patient is awake and alert, able to communicate. LABORATORY DATA: WBC 26.6, hemoglobin 13, hematocrit 38, platelet 254. Chemistry: Sodium 130, potassium 5.6, chloride 94, CO2 of 24, BUN 24, creatinine 0.9, blood sugar 397. Troponin is 0.76. Blood cultures and urine cultures are pending. CT scan showed multifocal pneumonia. ASSESSMENT AND PLAN: Currently the patient is on Maxipime 2 g every 24 hours. She is on Zithromax. We will continue her on nebulizer treatment. She is on Protonix. She is on deep venous thrombosis prophylaxis. She is on aspirin. The patient has positive troponin, probably demand ischemia, awaiting cardiology input. We will follow up her CBC and CMP . Sonya Brokos MD
--- NOTE | 2018-10-27 17:33 | CON ---
DATE: 10/27/2018 CARDIOLOGY FOLLOWUP HISTORY: The patient is an 88-year-old woman, who presented with several days of dyspnea. She denies chest pain. PAST MEDICAL HISTORY: The patient's past medical history is notable for history of diabetes mellitus, severe COPD from a long history of smoking with some moderate pulmonary hypertension as well as hypercholesterolemia. During her admission, she was found to have elevated troponins, EKG is abnormal with diffuse ST-T changes. Currently, the patient is still dyspneic although better than before. SOCIAL HISTORY: The patient stopped smoking 4 years ago. REVIEW OF SYSTEMS: Review of systems is dominated by dyspnea without edema without anginal symptoms. PHYSICAL EXAMINATION: VITAL SIGNS: Blood pressure 116/72, the heart rate is in the 90s. NECK: Negative JVD. LUNGS: Bilateral wheezing with rhonchi. HEART: Revealed S1, S2. EXTREMITIES: Without edema. EKG shows normal sinus rhythm with diffuse ST-T changes with a questionable inferior wall VA in the past. LABORATORY DATA: White count is up to 26,000 after steroid administration. Troponins of 0.76 with a glucose of 365, BUN and creatinine are unremarkable. IMPRESSION: 1. Exacerbation of chronic obstructive pulmonary disease. 2. Dyspnea. 3. Non-ST elevation myocardial infarction. 4. Diabetes mellitus. 5. Severe chronic obstructive pulmonary disease. 6. Coronary artery disease. 7. Hypercholesterolemia. 8. Weakness. PLAN: Given these findings, we will start the patient on full dose of Lovenox milligram per kilogram b.i.d. In addition, we will start the patient on Plavix. Once her breathing is better, we will consider cardiac catheterization. Vamshi West MD
[2018-10-27] MEDS: Enoxaparin 40 mg Syringe SC SCH (21:56)
[2018-10-28] MEDS: Albuterol-Ipratrop 3 mg / 0.5 (3 ml) UD IH SCH ×4 (02:00→19:53)
[2018-10-28] MEDS: MethylPREDNISolone 40 mg Vial IV SCH ×3 (06:23→22:52)
[2018-10-28 07:16] LABS: ALB/GLOB RATIO 1.1 (1.1-1.8); ALBUMIN 3.1 g/dL (3.0-4.8); CALCIUM 8.5 mg/dL (8.4-10.5)
[2018-10-28] MEDS ORDERED: Pantoprazole 40 mg EC Tab PO SCH (07:30)
[2018-10-28] MEDS: Insulin Reg-LOW-Coverage SC SCH ×2 (08:40→12:22)
[2018-10-28 08:54] LABS: BASO # 0.01 K/mm3 (0.0-2.0); HEMOGLOBIN 11.2 g/dL (12.0-16.0); LYMPH # 0.5 (1.2-3.4); LYMPH % 1.5 % (22.0-35.0); MEAN CELL VOLUME 88.1 fl (80.0-105.0); MEAN CORPUSCULAR HGB CONC 32.9 g/dl (31.0-37.0); MEAN PLATELET VOLUME 10.5 fl (7.0-11.0); MONO # 0.7 (0.1-0.6); RBC 3.86 10^6/uL (3.5-6.1); RED CELL DISTRIBUTION WIDTH 14.6 % (11.5-14.5)
[2018-10-28 09:05] LABS: WHITE BLOOD COUNT 35.5 10^3/uL (4.5-11.0)
[2018-10-28] MEDS: Metoprolol Succinate 25 mg XL Tab PO SCH (10:04)
[2018-10-28] MEDS: Enoxaparin 40 mg Syringe SC SCH ×2 (10:04→17:48)
[2018-10-28] MEDS: Azithromycin 500MG/NS 250ml 500 MG/250 ML BAG IVPB SCH (10:05)
--- NOTE | 2018-10-28 13:42 | PN ---
DATE: 10/28/2018 CARDIOLOGY FOLLOWUP SUBJECTIVE: The patient's breathing is better; however, she is still unable to lie flat. PHYSICAL EXAMINATION VITAL SIGNS: Blood pressure 106/56 and heart rate is in the 90s. NECK: Negative JVD. LUNGS: Bilateral rhonchi. HEART: Reveals S1 and S2. EXTREMITIES: Without change. LABORATORY DATA: BUN and creatinine is 36 and 1.2. Hemoglobin is 11.2 with a white count of 35,000. Troponins remain elevated. IMPRESSION: 1. Exacerbation of chronic obstructive pulmonary disease. 2. Leukocytosis secondary to steroid administration. 3. Non-ST elevation myocardial infarction. 4. Diabetes mellitus. 5. Severe chronic obstructive pulmonary disease. 6. High probability for coronary artery disease. 7. Persistent dyspnea. Given these findings, we will continue the patient on Lovenox. Aspirin has been ordered as well. We will consider catheterization once the patient's breathing is better, where she can fully cooperate during the catheterization. Vamshi West MD
[2018-10-28] MEDS ORDERED: Insulin Regular 1 UNITS/0.01 ML ML SC STA (14:44)
--- NOTE | 2018-10-28 15:05 | CP.PCM.PN ---
<Raleigh Melara - Last Filed: 10/28/18 15:00> Subjective - Date & Time of Evaluation Date of Evaluation: 10/28/18 Time of Evaluation: 09:10 - Subjective Subjective: Raleigh Melara D.O. PGY-3, Internal Medicine Resident, Infectious Disease Progress Note 88-year-old female with a past medical history of heart failure and emphysema who presented for complaints of acute shortness of breath for approximately 1 day. Infectious disease consultation was requested for sepsis. Patient was seen and examined at bedside. States that he breathing is somewhat better. No discomfort. Objective - Vital Signs/Intake and Output Vital Signs (last 24 hours): Temp Pulse Resp BP Pulse Ox 98.7 F 90 20 97/60 L 94 L 10/28/18 12:00 10/28/18 12:00 10/28/18 12:00 10/28/18 12:00 10/28/18 05:56 Intake and Output: 10/28/18 10/28/18 06:59 18:59 Intake Total 220 Output Total 100 Balance 120 - Medications Medications: Current Medications Acetaminophen (Tylenol 325mg Tab) 650 mg PO Q6H PRN PRN Reason: Fever >100.4 F Albuterol/Ipratropium (Duoneb 3 Mg/0.5 Mg (3 Ml) Ud) 3 ml IH Q2H PRN PRN Reason: Shortness of Breath Last Admin: 10/27/18 11:45 Dose: 3 ml Albuterol/Ipratropium (Duoneb 3 Mg/0.5 Mg (3 Ml) Ud) 3 ml IH [id number] [facility] Last Admin: 10/28/18 13:49 Dose: Not Given Aspirin (Ecotrin) 81 mg PO DAILY [facility] Last Admin: 10/28/18 10:04 Dose: 81 mg Atorvastatin Calcium (Lipitor) 10 mg PO DIN [facility] Last Admin: 10/27/18 17:05 Dose: 10 mg Clopidogrel Bisulfate (Plavix) 75 mg PO DAILY [facility] Last Admin: 10/28/18 10:04 Dose: 75 mg Enoxaparin Sodium (Lovenox) 40 mg SC BID [facility]; Protocol Last Admin: 10/28/18 10:04 Dose: 40 mg Azithromycin (Zithromax 500mg In Ns) 500 mg in 250 mls @ 167 mls/hr IVPB DAILY [facility]; Protocol Last Admin: 10/28/18 10:05 Dose: 167 mls/hr Cefepime HCl (Maxipime 2gm) 2 gm in 100 mls @ 100 mls/hr IVPB Q24H [facility]; Protocol Stop: 10/31/18 23:46 Last Admin: 10/27/18 23:00 Dose: 100 mls/hr Insulin Human Regular (Humulin R High) 0 units SC ACHS [facility]; Protocol Insulin Lispro Protam/Lispro Human (Humalog Mix 75/25) 10 units SC ACBD [facility] Methylprednisolone (Solu-Medrol) 40 mg IV Q8 [facility] Last Admin: 10/28/18 14:54 Dose: 40 mg Metoprolol Succinate (Toprol Xl) 25 mg PO BRK [facility] Last Admin: 10/28/18 10:04 Dose: 25 mg Ondansetron HCl (Zofran Inj) 4 mg IVP Q6H PRN PRN Reason: Nausea/Vomiting Pantoprazole Sodium (Protonix Ec Tab) 40 mg PO 0600 [facility] - Labs Labs: 10/28/18 05:45 10/28/18 05:45 - Constitutional Appears: Non-toxic, No Acute Distress, Chronically Ill - Head Exam Head Exam: ATRAUMATIC, NORMOCEPHALIC - Eye Exam Eye Exam: EOMI. absent: Scleral icterus - ENT Exam ENT Exam: Mucous Membranes Moist - Neck Exam Neck exam: Positive for: Normal Inspection. Negative for: Lymphadenopathy - Respiratory Exam Respiratory Exam: Wheezes - Cardiovascular Exam Cardiovascular Exam: +S1, +S2 - GI/Abdominal Exam GI & Abdominal Exam: Normal Bowel Sounds, Soft. absent: Tenderness - Extremities Exam Extremities exam: Negative for: calf tenderness, pedal edema - Neurological Exam Neurological exam: Alert - Skin Skin Exam: Dry, Warm Assessment and Plan - Assessment and Plan (Free Text) Assessment: 88-year-old female with a past medical history of heart failure and emphysema who presented for complaints of acute shortness of breath for approximately 1 day. Infectious disease consultation was requested for sepsis. Plan: Sepsis likely from community-acquired multifocal pneumonia NSTEMI Emphysema/COPD Insulin-dependent diabetes Peripheral vascular disease Elevated BNP and positive troponins History of heart failure MRSA negative UCx negative BCx negative 2/2 day 1 Afebrile Continue cefepime and azithromycin day 2 Pro-calcitonin low, supports possible viral etiology WBC very elevated however on high dose steroids, will monitor Cardiology Dr. West's notes reviewed and appreciated We will follow with you Patient was seen and examined with attending physician Thank you for the pleasure participating in the care of this interesting patient <Ashok Martinez - Last Filed: 10/28/18 23:18> Objective - Vital Signs/Intake and Output Vital Signs (last 24 hours): Temp Pulse Resp BP Pulse Ox 98.6 F 99 H 20 119/70 94 L 10/28/18 17:56 10/28/18 18:00 10/28/18 17:56 10/28/18 17:56 10/28/18 05:56 Intake and Output: 10/28/18 10/29/18 18:59 06:59 Intake Total 250 720 Output Total 300 Balance 250 420 - Medications Medications: Current Medications Acetaminophen (Tylenol 325mg Tab) 650 mg PO Q6H PRN PRN Reason: Fever >100.4 F Albuterol/Ipratropium (Duoneb 3 Mg/0.5 Mg (3 Ml) Ud) 3 ml IH Q2H PRN PRN Reason: Shortness of Breath Last Admin: 10/27/18 11:45 Dose: 3 ml Albuterol/Ipratropium (Duoneb 3 Mg/0.5 Mg (3 Ml) Ud) 3 ml IH [id number] [facility] Last Admin: 10/28/18 19:53 Dose: 3 ml Aspirin (Ecotrin) 81 mg PO DAILY [facility] Last Admin: 10/28/18 10:04 Dose: 81 mg Atorvastatin Calcium (Lipitor) 10 mg PO DIN [facility] Last Admin: 10/28/18 17:48 Dose: 10 mg Clopidogrel Bisulfate (Plavix) 75 mg PO DAILY [facility] Last Admin: 10/28/18 10:04 Dose: 75 mg Enoxaparin Sodium (Lovenox) 40 mg SC BID [facility]; Protocol Last Admin: 10/28/18 17:48 Dose: 40 mg Azithromycin (Zithromax 500mg In Ns) 500 mg in 250 mls @ 167 mls/hr IVPB DAILY [facility]; Protocol Last Admin: 10/28/18 10:05 Dose: 167 mls/hr Cefepime HCl (Maxipime 2gm) 2 gm in 100 mls @ 100 mls/hr IVPB Q24H [facility]; Protocol Stop: 10/31/18 23:46 Last Admin: 10/28/18 22:54 Dose: 100 mls/hr Insulin Human Regular (Humulin R High) 0 units SC ACHS [facility]; Protocol Last Admin: 10/28/18 22:52 Dose: Not Given Insulin Lispro Protam/Lispro Human (Humalog Mix 75/25) 10 units SC ACBD [facility] Last Admin: 10/28/18 17:00 Dose: Not Given Methylprednisolone (Solu-Medrol) 40 mg IV Q8 [facility] Last Admin: 10/28/18 22:52 Dose: 40 mg Metoprolol Succinate (Toprol Xl) 25 mg PO BRK [facility] Last Admin: 10/28/18 10:04 Dose: 25 mg Ondansetron HCl (Zofran Inj) 4 mg IVP Q6H PRN PRN Reason: Nausea/Vomiting Pantoprazole Sodium (Protonix Ec Tab) 40 mg PO 0600 [facility] - Labs Labs: 10/28/18 05:45 10/28/18 05:45 Assessment and Plan - Assessment and Plan (Free Text) Plan: Infectious Diseases Attending Physician Attestation Patient seen and examined at bedside, discussed with medical doctor. I have reviewed the HPI, ROS, physical examination findings. I have also reviewed the pertinent labs and diagnostic imaging. I have fully participiated in the care of this patient. I agree with the above findings, assessment, plan. In addition,continue Cefepime and Zithromax pending final culture results for sepsis due to multifocal pneumonia.
--- NOTE | 2018-10-28 16:29 | PN ---
DATE: 10/28/2018 SUBJECTIVE: The patient is 88-year-old, seen and examined. Still has shortness of breath. Seem worried and anxious. PHYSICAL EXAMINATION: VITAL SIGNS: She is afebrile. Pulse 97, respiration 20 and blood pressure 106/56. LUNGS: Bilateral fair airflow. Has dense expiratory rales and rhonchi. Soft crackle at bases. HEART: S1 and S2, audible. ABDOMEN: Soft and nontender. No rebound. No guarding. NEUROLOGIC: The patient is awake, alert and able to communicate. Moves all extremity. LABORATORY DATA: WBC 35.5, hemoglobin 11.2, hematocrit 34.0 and platelet of 217. Chemistry; sodium 126, potassium 5.7, chloride 92, CO2 of 23, BUN 36, creatinine 1.2 and blood sugar of 436. Blood culture and urine cultures are negative. ASSESSMENT: 1. Chronic obstructive pulmonary disease, exacerbation. 2. Non-ST elevation myocardial infarction. 3. Anxiety disorder. 4. Hyperkalemia. 5. Hyponatremia. PLAN: Currently, the patient is on Lovenox. She is on Plavix. She is on Protonix. We will continue her on steroid. She will eventually need cath once her respiratory status settle down, we will monitor her white count. Continue on steroid. We will followup. Sonya Brooks MD
[2018-10-28] MEDS: Insulin Reg-HIGH-Coverage SC SCH ×2 (17:00→22:52)
[2018-10-28] MEDS: Insulin Lispro (humaLOG) MIX 75/25(10 ml) SC SCH (17:00)
[2018-10-28] MEDS: Cefepime IV 2 gm in NS 2 GM/100 ML BAG IVPB SCH (22:54)
[2018-10-29] MEDS: Albuterol-Ipratrop 3 mg / 0.5 (3 ml) UD IH SCH ×4 (01:32→19:56)
[2018-10-29] MEDS: MethylPREDNISolone 40 mg Vial IV SCH ×3 (06:56→22:37)
[2018-10-29] MEDS: Pantoprazole 40 mg EC Tab PO SCH (06:57)
[2018-10-29 07:05] LABS: HEMOGLOBIN 10.1 g/dL (12.0-16.0); MEAN CELL VOLUME 86.5 fl (80.0-105.0); MEAN CORPUSCULAR HGB CONC 33.6 g/dl (31.0-37.0); MEAN PLATELET VOLUME 9.8 fl (7.0-11.0); RBC 3.48 10^6/uL (3.5-6.1); RED CELL DISTRIBUTION WIDTH 14.6 % (11.5-14.5)
[2018-10-29 07:18] LABS: WHITE BLOOD COUNT 27.6 10^3/uL (4.5-11.0)
[2018-10-29 07:47] LABS: ALB/GLOB RATIO 1.2 (1.1-1.8); ALBUMIN 2.9 g/dL (3.0-4.8); CALCIUM 7.5 mg/dL (8.4-10.5); TROPONIN I 0.61 ng/mL
[2018-10-29] MEDS: Insulin Reg-HIGH-Coverage SC SCH ×4 (08:44→22:31)
[2018-10-29] MEDS: Metoprolol Succinate 25 mg XL Tab PO SCH (08:45)
[2018-10-29] MEDS: Cefepime IV 2 gm in NS 2 GM/100 ML BAG IVPB SCH ×2 (09:32→22:38)
[2018-10-29] MEDS: Azithromycin 500MG/NS 250ml 500 MG/250 ML BAG IVPB SCH (09:32)
[2018-10-29] MEDS: Enoxaparin 30 mg Syringe SC SCH (09:32)
--- NOTE | 2018-10-29 10:02 | CP.PCM.PN ---
<[facility] - Last Filed: 10/29/18 11:23> Subjective - Date & Time of Evaluation Date of Evaluation: 10/29/18 Time of Evaluation: 07:50 - Subjective Subjective: [facility] Internal Medicine Resident- Progress Note on Behalf of Dr. Kirby Subjective: Patient seen and examined at bedside. No acute events overnight. States SOB has improved relative to baseline. Denies fever, chills, chest pain, abdominal pain, nausea, vomiting, diarrhea, and urinary symptoms. 12 point ROS negative except as indicated HPI Physical Examination: - Constitutional Appears: Non-toxic, No Acute Distress, Chronically Ill - Head Exam Head Exam: ATRAUMATIC, NORMOCEPHALIC - Eye Exam Eye Exam: EOMI. absent: Scleral icterus - ENT Exam ENT Exam: Mucous Membranes Moist - Neck Exam Neck exam: Positive for: Normal Inspection. Negative for: Lymphadenopathy - Respiratory Exam Respiratory Exam: diminished breath sounds bilaterally - Cardiovascular Exam Cardiovascular Exam: +S1, +S2 - GI/Abdominal Exam GI & Abdominal Exam: Normal Bowel Sounds, Soft. absent: Tenderness - Extremities Exam Extremities exam: Negative for: calf tenderness, pedal edema - Neurological Exam Neurological exam: Patient is awake, alert, responds to verbal stimuli, answers questions appropriately, follows commands - Skin Skin Exam: Dry, Warm Assessment and Plan: Sepsis likely from community-acquired multifocal pneumonia NSTEMI- Elevated BNP and positive troponins Acute Exacerbation of Chronic Emphysema/COPD Insulin-dependent diabetes Peripheral vascular disease Congestive heart failure Hyponatremia Continue cefepime and azithromycin day 3 for treatment of community-acquired multifocal pneumonia. MRSA negative. UCx negative. BCx negative 2/2 day 2. Pro- calcitonin low. Infectious disease consulted- appreciate recommendations. WBC elevated. Heme/onc consulted- appreciate recommendations. Continue duonebs lucio/prn and IV steroids decreased Continue aspirin, statin, and toprol xl. Continue lovenox for NSTEMI. Cardiology Dr. West's notes reviewed and appreciated- may undergo cardiac catherization during this hospitalization. Continue ISS and fingerstick ACHS for DM. urine/serum osm ordered and pending for work up of hyponatremia. Started on IVF NS @ 50cc/hr. Continue protonix for GI ppx. Patient case reviewed with and plan approved by attending physician, Dr. Kirby. Objective - Vital Signs/Intake and Output Vital Signs (last 24 hours): Temp Pulse Resp BP Pulse Ox 98 F 88 20 124/51 L 94 L 10/29/18 06:00 10/29/18 06:00 10/29/18 06:00 10/29/18 06:00 10/29/18 00:01 Intake and Output: 10/29/18 10/29/18 06:59 18:59 Intake Total 1080 Output Total 700 Balance 380 - Medications Medications: Current Medications Acetaminophen (Tylenol 325mg Tab) 650 mg PO Q6H PRN PRN Reason: Fever >100.4 F Albuterol/Ipratropium (Duoneb 3 Mg/0.5 Mg (3 Ml) Ud) 3 ml IH Q2H PRN PRN Reason: Shortness of Breath Last Admin: 10/27/18 11:45 Dose: 3 ml Albuterol/Ipratropium (Duoneb 3 Mg/0.5 Mg (3 Ml) Ud) 3 ml IH [id number] [facility] Last Admin: 10/29/18 08:21 Dose: 3 ml Aspirin (Ecotrin) 81 mg PO DAILY [facility] Last Admin: 10/28/18 10:04 Dose: 81 mg Atorvastatin Calcium (Lipitor) 10 mg PO DIN [facility] Last Admin: 10/28/18 17:48 Dose: 10 mg Enoxaparin Sodium (Lovenox) 30 mg SC DAILY [facility]; Protocol Azithromycin (Zithromax 500mg In Ns) 500 mg in 250 mls @ 167 mls/hr IVPB DAILY [facility]; Protocol Last Admin: 10/28/18 10:05 Dose: 167 mls/hr Cefepime HCl (Maxipime 2gm) 2 gm in 100 mls @ 100 mls/hr IVPB Q12 [facility]; Protocol Stop: 11/03/18 10:01 Insulin Human Regular (Humulin R High) 0 units SC ACHS [facility]; Protocol Last Admin: 10/29/18 08:44 Dose: 10 units Insulin Lispro Protam/Lispro Human (Humalog Mix 75/25) 10 units SC ACBD [facility] Last Admin: 10/28/18 17:00 Dose: Not Given Methylprednisolone (Solu-Medrol) 40 mg IV Q8 [facility] Last Admin: 10/29/18 06:56 Dose: 40 mg Metoprolol Succinate (Toprol Xl) 25 mg PO BRK [facility] Last Admin: 10/29/18 08:45 Dose: 25 mg Ondansetron HCl (Zofran Inj) 4 mg IVP Q6H PRN PRN Reason: Nausea/Vomiting Pantoprazole Sodium (Protonix Ec Tab) 40 mg PO 0600 [facility] Last Admin: 10/29/18 06:57 Dose: 40 mg - Labs Labs: 10/29/18 06:30 10/29/18 06:30 <Rowdy Kirby S - Last Filed: 10/29/18 19:41> Subjective - Subjective Subjective: Pt seen and examined by me. I have reviewed the note of the medical insurance biller and I agree with it. I have discussed the assessment and plan with the resident. I have reviewed the medications and the last labs. Objective - Vital Signs/Intake and Output Vital Signs (last 24 hours): Temp Pulse Resp BP Pulse Ox 98.1 F 85 18 112/71 94 L 10/29/18 17:31 10/29/18 18:00 10/29/18 17:31 10/29/18 17:31 10/29/18 17:31 Intake and Output: 10/29/18 10/30/18 18:59 06:59 Intake Total 700 1000 Output Total 800 Balance 700 200 - Medications Medications: Current Medications Acetaminophen (Tylenol 325mg Tab) 650 mg PO Q6H PRN PRN Reason: Fever >100.4 F Albuterol/Ipratropium (Duoneb 3 Mg/0.5 Mg (3 Ml) Ud) 3 ml IH Q2H PRN PRN Reason: Shortness of Breath Last Admin: 10/27/18 11:45 Dose: 3 ml Albuterol/Ipratropium (Duoneb 3 Mg/0.5 Mg (3 Ml) Ud) 3 ml IH [id number] [facility] Last Admin: 10/29/18 14:06 Dose: 3 ml Aspirin (Ecotrin) 81 mg PO DAILY [facility] Last Admin: 10/29/18 09:32 Dose: 81 mg Atorvastatin Calcium (Lipitor) 10 mg PO DIN [facility] Last Admin: 10/29/18 18:05 Dose: 10 mg Benzocaine/Menthol (Cepacol Sore Throat) 1 rigoberto MT Q4H PRN PRN Reason: Sore Throat Last Admin: 10/29/18 18:06 Dose: 1 rigoberto Enoxaparin Sodium (Lovenox) 30 mg SC DAILY [facility]; Protocol Last Admin: 10/29/18 09:32 Dose: 30 mg Azithromycin (Zithromax 500mg In Ns) 500 mg in 250 mls @ 167 mls/hr IVPB DAILY [facility]; Protocol Last Admin: 10/29/18 09:32 Dose: 167 mls/hr Cefepime HCl (Maxipime 2gm) 2 gm in 100 mls @ 100 mls/hr IVPB Q12 [facility]; Protocol Stop: 11/03/18 10:01 Last Admin: 10/29/18 09:32 Dose: 100 mls/hr Sodium Chloride (Sodium Chloride 0.9%) 1,000 mls @ 50 mls/hr IV .Q20H [facility] Last Admin: 10/29/18 12:43 Dose: 50 mls/hr Insulin Human Regular (Humulin R High) 0 units SC ACHS [facility]; Protocol Last Admin: 10/29/18 17:12 Dose: Not Given Insulin Lispro Protam/Lispro Human (Humalog Mix 75/25) 10 units SC ACBD [facility] Last Admin: 10/29/18 17:12 Dose: Not Given Methylprednisolone (Solu-Medrol) 40 mg IV Q8 [facility] Last Admin: 10/29/18 14:59 Dose: 40 mg Metoprolol Succinate (Toprol Xl) 25 mg PO BRK [facility] Last Admin: 10/29/18 08:45 Dose: 25 mg Ondansetron HCl (Zofran Inj) 4 mg IVP Q6H PRN PRN Reason: Nausea/Vomiting Pantoprazole Sodium (Protonix Ec Tab) 40 mg PO 0600 [facility] Last Admin: 10/29/18 06:57 Dose: 40 mg - Labs Labs: 10/29/18 06:30 10/29/18 06:30
[2018-10-29] MEDS: Insulin Lispro (humaLOG) MIX 75/25(10 ml) SC SCH ×2 (10:31→17:12)
--- NOTE | 2018-10-29 11:01 | CP.PCM.PN ---
<Raleigh Melara - Last Filed: 10/29/18 10:56> Subjective - Date & Time of Evaluation Date of Evaluation: 10/29/18 Time of Evaluation: 07:25 - Subjective Subjective: Raleigh Melara D.O. PGY-3, Internal Medicine Resident, Infectious Disease Progress Note 88-year-old female with a past medical history of heart failure and emphysema who presented for complaints of acute shortness of breath for approximately 1 day. Infectious disease consultation was requested for sepsis. Patient was seen and examined at bedside. Appears comfortable. States breathing ok. Objective - Vital Signs/Intake and Output Vital Signs (last 24 hours): Temp Pulse Resp BP Pulse Ox 98 F 88 20 124/51 L 94 L 10/29/18 06:00 10/29/18 06:00 10/29/18 06:00 10/29/18 06:00 10/29/18 00:01 Intake and Output: 10/29/18 10/29/18 06:59 18:59 Intake Total 1080 Output Total 700 Balance 380 - Medications Medications: Current Medications Acetaminophen (Tylenol 325mg Tab) 650 mg PO Q6H PRN PRN Reason: Fever >100.4 F Albuterol/Ipratropium (Duoneb 3 Mg/0.5 Mg (3 Ml) Ud) 3 ml IH Q2H PRN PRN Reason: Shortness of Breath Last Admin: 10/27/18 11:45 Dose: 3 ml Albuterol/Ipratropium (Duoneb 3 Mg/0.5 Mg (3 Ml) Ud) 3 ml IH [id number] [facility] Last Admin: 10/29/18 08:21 Dose: 3 ml Aspirin (Ecotrin) 81 mg PO DAILY [facility] Last Admin: 10/29/18 09:32 Dose: 81 mg Atorvastatin Calcium (Lipitor) 10 mg PO DIN [facility] Last Admin: 10/28/18 17:48 Dose: 10 mg Enoxaparin Sodium (Lovenox) 30 mg SC DAILY [facility]; Protocol Last Admin: 10/29/18 09:32 Dose: 30 mg Azithromycin (Zithromax 500mg In Ns) 500 mg in 250 mls @ 167 mls/hr IVPB DAILY [facility]; Protocol Last Admin: 10/29/18 09:32 Dose: 167 mls/hr Cefepime HCl (Maxipime 2gm) 2 gm in 100 mls @ 100 mls/hr IVPB Q12 [facility]; Protocol Stop: 11/03/18 10:01 Last Admin: 10/29/18 09:32 Dose: 100 mls/hr Insulin Human Regular (Humulin R High) 0 units SC ACHS [facility]; Protocol Last Admin: 10/29/18 08:44 Dose: 10 units Insulin Lispro Protam/Lispro Human (Humalog Mix 75/25) 10 units SC ACBD [facility] Last Admin: 10/29/18 10:31 Dose: 10 units Methylprednisolone (Solu-Medrol) 40 mg IV Q8 [facility] Last Admin: 10/29/18 06:56 Dose: 40 mg Metoprolol Succinate (Toprol Xl) 25 mg PO BRK [facility] Last Admin: 10/29/18 08:45 Dose: 25 mg Ondansetron HCl (Zofran Inj) 4 mg IVP Q6H PRN PRN Reason: Nausea/Vomiting Pantoprazole Sodium (Protonix Ec Tab) 40 mg PO 0600 [facility] Last Admin: 10/29/18 06:57 Dose: 40 mg - Labs Labs: 10/29/18 06:30 10/29/18 06:30 - Constitutional Appears: Non-toxic, No Acute Distress, Chronically Ill, elderly - Head Exam Head Exam: ATRAUMATIC, NORMOCEPHALIC - Eye Exam Eye Exam: EOMI. absent: Scleral icterus - ENT Exam ENT Exam: Mucous Membranes Moist - Neck Exam Neck exam: Positive for: Normal Inspection. Negative for: Lymphadenopathy - Respiratory Exam Respiratory Exam: mildly decreased breath sounds throughout but no wheezing or rhonchi - Cardiovascular Exam Cardiovascular Exam: +S1, +S2 - GI/Abdominal Exam GI & Abdominal Exam: Normal Bowel Sounds, Soft. absent: Tenderness - Extremities Exam Extremities exam: Negative for: calf tenderness, pedal edema - Neurological Exam Neurological exam: Alert, Awake, nonfocal - Skin Skin Exam: Dry, Warm Assessment and Plan - Assessment and Plan (Free Text) Assessment: 88-year-old female with a past medical history of heart failure and emphysema who presented for complaints of acute shortness of breath for approximately 1 day. Infectious disease consultation was requested for sepsis. Plan: Sepsis likely from community-acquired multifocal pneumonia NSTEMI Hyponatremia Emphysema/COPD Insulin-dependent diabetes Peripheral vascular disease Elevated BNP and positive troponins History of heart failure Has been afebrile but does have markedly high leukocytosis BCx negative 2/2 day 2 Continue azithromycin day 3 Increased cefepime to 2g q12h day [address] West's notes reviewed and appreciated Hyponatremia worsening, urine legionella negative Urine lytes and urine/serum osmol ordered Discussed with primary team We will follow with you Patient was seen and examined with attending physician Thank you for the pleasure participating in the care of this interesting patient <ParthYuan - Last Filed: 10/29/18 11:28> Objective - Vital Signs/Intake and Output Vital Signs (last 24 hours): Temp Pulse Resp BP Pulse Ox 98 F 88 20 124/51 L 94 L 10/29/18 06:00 10/29/18 06:00 10/29/18 06:00 10/29/18 06:00 10/29/18 00:01 Intake and Output: 10/29/18 10/29/18 06:59 18:59 Intake Total 1080 Output Total 700 Balance 380 - Medications Medications: Current Medications Acetaminophen (Tylenol 325mg Tab) 650 mg PO Q6H PRN PRN Reason: Fever >100.4 F Albuterol/Ipratropium (Duoneb 3 Mg/0.5 Mg (3 Ml) Ud) 3 ml IH Q2H PRN PRN Reason: Shortness of Breath Last Admin: 10/27/18 11:45 Dose: 3 ml Albuterol/Ipratropium (Duoneb 3 Mg/0.5 Mg (3 Ml) Ud) 3 ml IH [id number] [facility] Last Admin: 10/29/18 08:21 Dose: 3 ml Aspirin (Ecotrin) 81 mg PO DAILY [facility] Last Admin: 10/29/18 09:32 Dose: 81 mg Atorvastatin Calcium (Lipitor) 10 mg PO DIN [facility] Last Admin: 10/28/18 17:48 Dose: 10 mg Enoxaparin Sodium (Lovenox) 30 mg SC DAILY [facility]; Protocol Last Admin: 10/29/18 09:32 Dose: 30 mg Azithromycin (Zithromax 500mg In Ns) 500 mg in 250 mls @ 167 mls/hr IVPB DAILY [facility]; Protocol Last Admin: 10/29/18 09:32 Dose: 167 mls/hr Cefepime HCl (Maxipime 2gm) 2 gm in 100 mls @ 100 mls/hr IVPB Q12 [facility]; Protocol Stop: 11/03/18 10:01 Last Admin: 10/29/18 09:32 Dose: 100 mls/hr Sodium Chloride (Sodium Chloride 0.9%) 1,000 mls @ 50 mls/hr IV .Q20H [facility] Insulin Human Regular (Humulin R High) 0 units SC ACHS [facility]; Protocol Last Admin: 10/29/18 08:44 Dose: 10 units Insulin Lispro Protam/Lispro Human (Humalog Mix 75/25) 10 units SC ACBD [facility] Last Admin: 10/29/18 10:31 Dose: 10 units Methylprednisolone (Solu-Medrol) 40 mg IV Q8 [facility] Last Admin: 10/29/18 06:56 Dose: 40 mg Metoprolol Succinate (Toprol Xl) 25 mg PO BRK [facility] Last Admin: 10/29/18 08:45 Dose: 25 mg Ondansetron HCl (Zofran Inj) 4 mg IVP Q6H PRN PRN Reason: Nausea/Vomiting Pantoprazole Sodium (Protonix Ec Tab) 40 mg PO 0600 [facility] Last Admin: 10/29/18 06:57 Dose: 40 mg - Labs Labs: 10/29/18 06:30 10/29/18 06:30 Attending/Attestation - Attestation I have personally seen and examined this patient.: Yes I have fully participated in the care of the patient.: Yes I have reviewed all pertinent clinical information, including history, physical exam and plan: Yes Notes (Text): 10/29/18 11:[address] OF ABDOMEN/ HEME EVAL
[2018-10-29] MEDS ORDERED: Barium Sulfate Susp 2.1% w/v, 2.0% w/w 450 mL Bottle PO ONE (11:39)
--- NOTE | 2018-10-29 12:35 | PN ---
DATE: 10/29/2018 CARDIOLOGY FOLLOWUP NOTE SUBJECTIVE: The patient is without chest pain. Her breathing is better. PHYSICAL EXAMINATION: VITAL SIGNS: Blood pressure is 124/51. The heart rate is in the 80s. NECK: Negative JVD. LUNGS: Without rales. HEART: S1, S2. EXTREMITIES: Without edema. LABORATORY DATA: The troponin is still at 0.61. Glucose is 311. Hemoglobin is 10.1. IMPRESSION: 1. Exacerbation of chronic obstructive pulmonary disease. 2. Severe chronic obstructive pulmonary disease. 3. [id number] myocardial infarction. 4. High probability it is a coronary artery disease. 5. Diabetes mellitus. 6. Leukocytosis secondary to steroids. PLAN: Given these findings, I discussed with the patient about the need and risks and benefits of cardiac catheterization. At this time, the patient is refusing, but she does understand and will think about it. We will decrease her Lovenox to daily. We will discontinue her clopidogrel. Vamshi West MD
[2018-10-29 12:37] LABS: CREATININE,RANDOM URINE 78 mg/dL
[2018-10-29] MEDS: Sodium Chloride 0.9% 1,000 ML IV SCH (12:43)
[2018-10-29 13:06] LABS: OSMOLALITY,URINE 543 mosm/kg (300-1000)
[2018-10-29] MEDS ORDERED: Benzocaine/Menthol (Cepacol) Lozenge MT PRN (17:51)
--- NOTE | 2018-10-29 23:06 | PN ---
DATE: 10/29/2018 The patient was seen and examined. I do agree with the note of the medical doctor md/medical director. I was involved in the plan of care. This is coverage for Dr. Brooks. The patient has community-acquired pneumonia that is multifocal. The patient is going to be continued on her cefepime and the Zithromax for antibiotics. She has a non-ST elevation [place]. She is on Lovenox. She is going to continue her aspirin and Toprol as well. The patient has hyponatremia. We will place on IV fluids. She is going to have urine study. The patient is currently receiving DuoNebs and IV steroids for breathing. The patient has CHF, most likely from systolic dysfunction. She has diabetes type 2 and this would be controlled with insulin sliding scale. She is being followed by Dr. West from Cardiology and Dr. Alba from Infectious Disease. I appreciated their input. The patient's blood cultures and urine cultures have been negative. She was given Kayexalate for her hyperkalemia. Her potassium has improved. The patient has a sodium that has slowly been decreasing. She has a urine sodium that is less than 5. She had an echocardiogram done in 01/2016 that showed LV that was normal function. The patient is on Lipitor for dyslipidemia. She is going to continue Solu-Medrol. I will start to decrease her Solu-Medrol. She is on 40 mg every 8 hours, I will decrease that to every 12 hours. She is on Zofran as needed. Her urine osmolality is elevated. She may have hyponatremia secondary to hypovolemia, this is why she has been placed on IV fluids. I do not feel that this is SIADH. She does not have history of CHF. She does not have a significant lower extremity edema. I know that this is volume overload. We will repeat her blood work tomorrow. She has Lovenox for DVT prophylaxis. Her urine specific gravity on 10/27/2018 was also elevated. We will repeat her blood work in the morning. Rowdy Kirby MD
[2018-10-30] MEDS: Albuterol-Ipratrop 3 mg / 0.5 (3 ml) UD IH SCH ×4 (01:26→19:58)
[2018-10-30] MEDS: Pantoprazole 40 mg EC Tab PO SCH (05:47)
[2018-10-30 08:01] LABS: ALB/GLOB RATIO 1.1 (1.1-1.8); ALBUMIN 2.8 g/dL (3.0-4.8); ALT/SGPT 55 U/L (7-56); AST/SGOT 38 U/L (14-36); BLOOD UREA NITROGEN 34 mg/dL (7-21); CALCIUM 7.7 mg/dL (8.4-10.5); GFR NON-AFRICAN AMERICAN 59
[2018-10-30 08:07] LABS: HEMOGLOBIN 10.4 g/dL (12.0-16.0); MEAN CELL VOLUME 85.8 fl (80.0-105.0); MEAN CORPUSCULAR HEMOGLOBIN 29.6 pg (25.0-35.0); MEAN CORPUSCULAR HGB CONC 34.6 g/dl (31.0-37.0); MEAN PLATELET VOLUME 9.7 fl (7.0-11.0); RBC 3.51 10^6/uL (3.5-6.1); RED CELL DISTRIBUTION WIDTH 14.3 % (11.5-14.5); WHITE BLOOD COUNT 16.9 10^3/uL (4.5-11.0)
[2018-10-30] MEDS: Cefepime IV 2 gm in NS 2 GM/100 ML BAG IVPB SCH ×2 (09:25→21:33)
[2018-10-30] MEDS: Enoxaparin 30 mg Syringe SC SCH (09:25)
[2018-10-30] MEDS: MethylPREDNISolone 40 mg Vial IV SCH ×2 (09:25→21:33)
[2018-10-30] MEDS: Insulin Reg-HIGH-Coverage SC SCH ×4 (09:26→22:17)
[2018-10-30] MEDS: Metoprolol Succinate 25 mg XL Tab PO SCH (09:26)
[2018-10-30] MEDS: Insulin Lispro (humaLOG) MIX 75/25(10 ml) SC SCH ×2 (09:27→16:50)
[2018-10-30] MEDS: Sodium Chloride 0.9% 1,000 ML IV SCH (09:28)
--- NOTE | 2018-10-30 09:35 | PN ---
DATE: 10/30/2018 CARDIOLOGY FOLLOWUP SUBJECTIVE: The patient's breathing is much improved. She is able to lie 30 degrees without shortness of breath. PHYSICAL EXAMINATION VITAL SIGNS: Blood pressure is 111/65 and heart rates in the 70s. NECK: Negative JVD. LUNGS: Bilateral rhonchi. HEART: Reveals S1 and S2. EXTREMITIES: Without edema. LABORATORY DATA: BUN and creatinine are unremarkable. Glucose is 251. IMPRESSION: 1. Non-ST elevation myocardial infarction. 2. Exacerbation of chronic obstructive pulmonary disease. 3. Severe chronic obstructive pulmonary disease. 4. Dyspnea, which is much improved. Given these findings, the patient is still not agreeable to cardiac catheterization. We will continue to treat medically. Vamshi West MD
--- NOTE | 2018-10-30 10:36 | PN ---
DATE: 10/30/2018 SUBJECTIVE: The patient has no complains of any chest pain. No shortness of breath, no headaches or dizziness. PHYSICAL EXAMINATION: VITAL SIGNS: Temperature is 98, pulse is 79, blood pressure is 111/65, respirations 20. GENERAL: The patient is lying in bed, flat, comfortable. HEENT: No oral lesion. Anicteric sclerae. Moist mucosa. NECK: No JVD, adenopathy, or thyromegaly. CARDIOVASCULAR: S1 and S2, regular. No murmurs, rubs, or gallops. LUNGS: Clear to auscultation bilaterally. No wheeze, rales, or rhonchi. ABDOMEN: Bowel sounds are positive, soft, nontender and nondistended. EXTREMITIES: No cyanosis, clubbing or edema. LABORATORY DATA: White count of 27.6, hemoglobin 10.1. Creatinine 0.9, sodium is 124. ASSESSMENT: 1. Sepsis secondary to community-required pneumonia. 2. Non-ST elevation myocardial infarction. 3. Acute chronic obstructive pulmonary disease exacerbation. 4. Diabetes type 2. 5. Peripheral arterial disease. 6. Hyponatremia. 7. Leukocytosis. PLAN: The patient's sodium is slightly better compare to yesterday. She has urine sodium that was less than 5. She is on aspirin daily. She is going to be continued on her Lovenox for DVT prophylaxis. She is on atorvastatin for dyslipidemia. The patient is on Solu-Medrol is being tapered slowly. She is on Tylenol as needed. She is getting BiPAP. Rowdy Kirby MD
[2018-10-30] MEDS: Azithromycin 500MG/NS 250ml 500 MG/250 ML BAG IVPB SCH (12:52)
--- NOTE | 2018-10-31 00:42 | PN ---
DATE: 10/30/2018 SUBJECTIVE: The patient is in bed, in no acute distress, nontoxic, was seen earlier today in [facility], bed 1. PHYSICAL EXAMINATION: VITAL SIGNS: Temperature is 98, blood pressure is 111/70, respiratory rate of 18, heart rate of 94. HEENT: Unremarkable. NECK: Supple. LUNGS: Decreased breath sounds. HEART: Normal S1 and S2. ABDOMEN: Soft. LABORATORY DATA: Reveals the patient's white count of 16,900, hemoglobin of 10, BUN of 34, creatinine of 0.9, procalcitonin is 0.15. Urine Legionella is negative. Blood cultures are negative. MRSA is negative. Urine culture is negative. Review of orders, the patient is on Solu-Medrol, cefepime, and azithromycin. ASSESSMENT AND PLAN: An 88-year-old with past medical history of congestive heart failure, emphysema with sepsis, community-acquired multifocal pneumonia, non-ST elevation myocardial infarction, hyponatremia, chronic obstructive pulmonary disease, diabetes, peripheral vascular disease, elevated basic metabolic profile, positive troponin, history of heart failure, on cefepime, azithromycin. If unable to tolerate, we will switch the azithromycin to by mouth and follow white blood cell count. The patient is on steroids. Culture is thus far negative. Nares methicillin-resistant Staphylococcus aureus is negative. workup is negative. We will follow with you. Yuan Alba MD
[2018-10-31] MEDS: Albuterol-Ipratrop 3 mg / 0.5 (3 ml) UD IH SCH ×4 (02:18→19:31)
[2018-10-31] MEDS: Pantoprazole 40 mg EC Tab PO SCH (05:28)
[2018-10-31 06:36] LABS: HEMOGLOBIN 10.1 g/dL (12.0-16.0); MEAN CELL VOLUME 87.2 fl (80.0-105.0); MEAN CORPUSCULAR HEMOGLOBIN 29.4 pg (25.0-35.0); MEAN CORPUSCULAR HGB CONC 33.8 g/dl (31.0-37.0); MEAN PLATELET VOLUME 9.9 fl (7.0-11.0); RBC 3.43 10^6/uL (3.5-6.1); RED CELL DISTRIBUTION WIDTH 14.4 % (11.5-14.5); WHITE BLOOD COUNT 12.7 10^3/uL (4.5-11.0)
[2018-10-31 07:07] LABS: IRON 66 ug/dL (45-180)
[2018-10-31 07:17] LABS: % IRON SATURATION 26 % (20-55); TOTAL IRON BINDING CAPACITY 256 ug/dL (265-497)
[2018-10-31] MEDS: Insulin Reg-HIGH-Coverage SC SCH ×4 (08:43→21:40)
[2018-10-31] MEDS: Insulin Lispro (humaLOG) MIX 75/25(10 ml) SC SCH ×2 (08:43→16:30)
[2018-10-31 09:23] LABS: ALB/GLOB RATIO 1.3 (1.1-1.8); ALBUMIN 2.9 g/dL (3.0-4.8); ALT/SGPT 52 U/L (7-56); AST/SGOT 41 U/L (14-36); BLOOD UREA NITROGEN 33 mg/dL (7-21); GFR NON-AFRICAN AMERICAN 52; URIC ACID 6.4 mg/dL (2.5-6.2)
[2018-10-31] MEDS: Enoxaparin 30 mg Syringe SC SCH (09:40)
[2018-10-31] MEDS: Cefepime IV 2 gm in NS 2 GM/100 ML BAG IVPB SCH ×2 (09:40→21:33)
[2018-10-31] MEDS: Metoprolol Succinate 25 mg XL Tab PO SCH (09:41)
[2018-10-31] MEDS: MethylPREDNISolone 40 mg Vial IV SCH ×2 (09:41→21:33)
--- NOTE | 2018-10-31 12:43 | PN ---
DATE: 10/31/2018 SUBJECTIVE: The patient is in bed, in no acute distress, was seen earlier today. She appears to be comfortable in 276, bed 1. PHYSICAL EXAMINATION: VITAL SIGNS: Temperature is 98, blood pressure is 106/50 and respiratory rate of 18. HEENT: Unremarkable. NECK: Supple. LUNGS: Decreased breath sounds. HEART: Normal S1 and S2. ABDOMEN: Soft and nontender. LABORATORY DATA: Reveals the white count of 12,700, hemoglobin of 10 and platelets 170. BUN is 33 and creatinine of 1.0. The patient's procalcitonin is 0.15 and urinalysis is noted. Serology and urine legionella is negative. Microbiology reveals nares negative. Urine culture and blood culture are negative. The patient is currently on cefepime, p.o. azithromycin and Solu-Medrol. ASSESSMENT AND PLAN: This is an 88-year-old female with past medical history significant for congestive heart failure and emphysema, admitted with sepsis with community-acquired pneumonia which is multifocal pneumonia with a non-ST elevation myocardial infarction, hyponatremia, chronic obstructive lung disease, diabetes, peripheral vascular disease and on azithromycin p.o., cefepime and Solu-Medrol. May discontinue the cefepime within the next 24 hours. Today is day #6 of antibiotics. We will discontinue cefepime within the next 24 hours and complete 7 to 10 days of p.o. azithromycin. The patient appears to be improving and Solu-Medrol is being tapered off as per discussion with Dr. Kirby. We will discontinue cefepime within the next 24 hours. Yuan Alba MD
[2018-10-31] MEDS: Tolvaptan 15 MG TAB PO SCH (14:22)
--- NOTE | 2018-10-31 15:15 | PN ---
DATE: 10/31/2018 CARDIOLOGY FOLLOWUP SUBJECTIVE: The patient's breathing is stable. The patient is able to lie flat. PHYSICAL EXAMINATION: VITAL SIGNS: Blood pressure is 113/64, heart rate in the 80's. NECK: Negative JVD. LUNGS: Bilateral rhonchi. HEART: S1 and S2. EXTREMITIES: Without edema. LABORATORY DATA: White count is down to 12.7, hemoglobin is 10.1, BUN and creatinine are 33 and 1 with a glucose of 275. IMPRESSION: 1. Exacerbation of chronic obstructive pulmonary disease. 2. Severe chronic obstructive pulmonary disease. 3. Non-ST myocardial infarction. 4. Coronary artery disease. 5. Dyspnea has now resolved. Given these findings, we will re-approach the patient about the need for cardiac catheterization. So far, she has refused. Vamshi West MD
--- NOTE | 2018-10-31 17:14 | PN ---
DATE: 10/31/2018 SUBJECTIVE: The patient had no complaints of having chest pain, no shortness of breath, no headache. PHYSICAL EXAMINATION: VITAL SIGNS: Temperature is 97.8, pulse of 82, blood pressure 120/65, respirations 18. GENERAL: The patient is lying in bed, flat, comfortable. HEENT: No oral lesion. Anicteric sclerae. Moist mucosa. NECK: No JVD, adenopathy, or thyromegaly. CARDIOVASCULAR: S1 and S2, regular. No murmurs, rubs, or gallops. LUNGS: Clear to auscultation bilaterally. No wheeze, rales, or rhonchi. ABDOMEN: Bowel sounds are positive, soft, nontender and nondistended. EXTREMITIES: no cyanosis, clubbing or edema. LABORATORY DATA: White count is 12.7, hemoglobin 10.1. Sodium is 125, creatinine is 1.0. ASSESSMENT: 1. Sepsis secondary to community-acquired pneumonia. 2. Non-ST elevation of myocardial infarction. 3. Hyponatremia. 4. chronic obstructive pulmonary disease. 5. Diabetes type 2. 6. Peripheral arterial disease. 7. Leukocytosis. PLAN: The patient's blood cultures have been negative. The patient's urine culture thus negative. The patient had an elevated white count; the white count has improved. Her iron saturation is 26%. She is anemic. Dr. Guevara is going to be following for the anemia as well as for the elevated white cell count. She is on Lovenox for the DVT prophylaxis. She is on cefepime for antibiotics. The patient is on Zithromax for antibiotics. She is getting BIPAP. Flow cytometry has been ordered. Her sodium remains low. Urine studies were done and she continues to have low urine sodium. Her urine osmolality is 262. I will restrict her. Her last LV was normal from 2016. She will need another echo to evaluate her LV function to see if she has CHF causing her hyponatremia. I will place the patient on tolvaptan if her sodium remains low. She has an elevated urine sodium. She did receive IV fluids with no benefit. Rowdy Kirby MD [facility] # [id number]
[2018-11-01] MEDS: Albuterol-Ipratrop 3 mg / 0.5 (3 ml) UD IH SCH ×4 (01:27→19:45)
[2018-11-01] MEDS: Pantoprazole 40 mg EC Tab PO SCH (05:33)
[2018-11-01 07:32] LABS: MEAN CORPUSCULAR HEMOGLOBIN 29.7 pg (25.0-35.0); MEAN CORPUSCULAR HGB CONC 33.3 g/dl (31.0-37.0); MEAN PLATELET VOLUME 9.8 fl (7.0-11.0); RBC 3.37 10^6/uL (3.5-6.1); RED CELL DISTRIBUTION WIDTH 14.7 % (11.5-14.5)
[2018-11-01] MEDS: Insulin Reg-HIGH-Coverage SC SCH ×4 (08:09→21:29)
[2018-11-01] MEDS: Insulin Lispro (humaLOG) MIX 75/25(10 ml) SC SCH ×2 (08:10→17:18)
[2018-11-01] MEDS: Metoprolol Succinate 25 mg XL Tab PO SCH (08:10)
[2018-11-01 08:12] LABS: ALB/GLOB RATIO 1.1 (1.1-1.8); ALBUMIN 2.7 g/dL (3.0-4.8); ALT/SGPT 50 U/L (7-56); AST/SGOT 32 U/L (14-36); BLOOD UREA NITROGEN 33 mg/dL (7-21); CALCIUM 8.4 mg/dL (8.4-10.5); GFR NON-AFRICAN AMERICAN 52
--- NOTE | 2018-11-01 09:21 | PN ---
DATE: 11/01/2018 SUBJECTIVE: The patient is seen earlier today in room 276, bed 1. No fevers, no chills, no nausea. She is comfortable on exam. PHYSICAL EXAMINATION: VITAL SIGNS: Temperature is 97, blood pressure is 120/60, respiratory rate of 18. HEENT: Unremarkable. NECK: Supple. LUNGS: Have decreased breath sounds. HEART: Normal S1, S2. ABDOMEN: Soft. LABORATORY EXAMINATION: Reveals the patient's white count of 14,000, and the chemistries reveal the patient has a BUN of 33, creatinine of 1. Procalcitonin is revealed as 0.15, and microbiology reveals the urine cultures negative, nasal MRSA screen is negative, blood cultures are negative, and also urinalysis is noted, and serology for Legionella is negative. Review of orders reveals the patient to be on cefepime and p.o. azithromycin, and the patient is also on Solu-Medrol. ASSESSMENT AND PLAN: This is an 88-year-old female with a history of congestive heart failure, emphysema, admitted with sepsis, community-acquired pneumonia, multifocal pneumonia, snf-QG-yehluxggb myocardial infarction, hyponatremia, chronic obstructive lung disease, diabetes, peripheral vascular disease, on oral azithromycin and Solu-Medrol. Today is day #7 of antibiotics. We will discontinue the cefepime, and we would complete 7-10 days of oral azithromycin. Mild increase in leukocytosis, probably contributed to the Solu-Medrol, and we will follow with you. Yuan Alba MD
--- NOTE | 2018-11-01 10:10 | CON ---
DATE: 11/01/2018 CONSULT REQUESTED BY: Dr. Brooks. REASON FOR CONSULTATION: Leukocytosis. HISTORY OF PRESENT ILLNESS: Ms. Cantrell is an 88-year-old female admitted to the hospital with increased shortness of breath and COPD exacerbation. She has history of COPD and peripheral vascular disease. She was found to have multifocal pneumonia, also non-ST elevation myocardial infarction. White count is elevated to 34,000 and to 26,000 on admission which increased to 35,000. No fever. Positive workup with expectoration. Has chronic back pain. PAST MEDICAL HISTORY: COPD, diabetes mellitus type 2, and peripheral vascular disease. ALLERGIES: NO KNOWN DRUG ALLERGIES. HOME MEDICATIONS: Glimepiride 2 mg daily, Lasix 20 mg daily, simvastatin 40 mg daily, and aspirin 81 mg daily. SOCIAL HISTORY: Lives with her ; heavy smoker in the past, quit few years ago. REVIEW OF SYSTEMS: As per HPI. Positive for cough, shortness of breath, difficulty in walking, and dizziness. A 12-point review of systems reviewed negative. PHYSICAL EXAMINATION: GENERAL: Comfortable in bed; in no acute distress. Awake, alert, and oriented. VITAL SIGNS: Afebrile, temperature 98.7, heart rate 80 per minute, blood pressure 110/70, respiratory rate 20 per minute and oxygen saturation 98% on oxygen by nasal cannula. LUNGS: Bilateral air entry present. No rhonchi. No crepitation. CARDIOVASCULAR: S1 and S2 normal. No murmur, rub, or gallop. ABDOMEN: Soft and nontender. No hepatosplenomegaly. NEUROLOGIC: Awake, alert, and oriented x3. No sensory motor deficit. CAT scan of the chest showed multifocal infiltrate and COPD changes. LABORATORY DATA: Labs on admission; white count 35,000, hemoglobin 11.2, hematocrit 34, and platelet count 217; current white count is 14,000, hemoglobin 10, hematocrit 30, and platelet 176. Sodium 135, potassium 4.5. Iron study showed iron of 66, iron saturation 26%. Ferritin 70. ASSESSMENT: 1. Leukocytosis. 2. Anemia. 3. Multifocal pneumonia. 4. Chronic obstructive pulmonary disease exacerbation. 5. Cxz-PD-qbsnthfvu myocardial infarction. PLAN: Flow cytometry for leukemia, lymphoma panel to be sent stat today. BCR-ABL ordered to r/o CML. Serum protein electrophoresis, kappa and lambda light chain ordered. Iron saturation is within normal limits. Leukocytosis likely reactive due to COPD exacerbation and pneumonia. Mild anemia, workup in progress. Renal functions are within normal limits. Thank you Dr. Brooks for allowing us to participate in Ms. Cantrell's care. We will continue to follow. Rita Guevara MD [facility]
[2018-11-01] MEDS: Enoxaparin 30 mg Syringe SC SCH (11:42)
[2018-11-01] MEDS: Tolvaptan 15 MG TAB PO SCH (11:42)
[2018-11-01] MEDS: MethylPREDNISolone 40 mg Vial IV SCH ×2 (11:43→21:25)
--- NOTE | 2018-11-01 13:52 | PN ---
DATE: 11/01/2018 SUBJECTIVE: The patient complains of upper respiratory congestion. OBJECTIVE: VITAL SIGNS: Blood pressure is 127/54, heart rate is in the 80s. NECK: Negative JVD. LUNGS: Bilateral rhonchi. HEART: S1, S2. EXTREMITIES: Without edema. LABORATORY DATA: Hemoglobin is 10, BUN and creatinine are 33 and 1.0 with a glucose of 295. IMPRESSION: 1. Exacerbation of chronic obstructive pulmonary disease. 2. Severe chronic obstructive pulmonary disease. 3. Non-ST elevation myocardial infarction. 4. Coronary artery disease. 5. Improvement of dyspnea. The patient is refusing cardiac catheterization. We will continue to treat her non-STEMI with medical therapy which will include aspirin, Lipitor as well as low-dose beta blockers. Vamshi West MD
--- NOTE | 2018-11-01 14:02 | PN ---
DATE: 11/01/2018 SUBJECTIVE: The patient is 88-year-old, seen and examined, significant for cough and congestion, a lot of mucous rattling in her throat. PHYSICAL EXAMINATION: VITAL SIGNS: She is afebrile, pulse 86, respiration 18, and blood pressure 127/54. LUNGS: Bilateral soft crackle in upper lung region. HEART: S1 and S2 audible. ABDOMEN: Soft and nontender. No rebound. No guarding. NEUROLOGIC: She is awake and alert; able to communicate. LABORATORY DATA: WBC 14, hemoglobin 10, hematocrit 30, and platelet 176. Chemistry; sodium 135, potassium 4.5, chloride 102, CO2 of 26, BUN 33, creatinine 1.0, and blood sugar of 225. Blood culture and urine cultures are negative. CT scan of the chest was done, that shows multifocal infiltrate. ASSESSMENT: 1. Bilateral pneumonia. 2. Cxx-EY-hejhqepss myocardial infarction. 3. Hyponatremia. 4. Hypertension. PLAN: We will continue the patient on current antibiotics. Continue physical therapy. TCU evaluation has been requested, and I will request for chest physical therapy. Sonya Brooks MD
--- NOTE | 2018-11-01 18:39 | CARD ---
APPROVED REPORT Date of service: 11/01/2018 EXAM: Two-dimensional and M-mode echocardiogram with Doppler and color Doppler. INDICATION LE EDEMA 2D DIMENSIONS Left Atrium (2D)3.6 (1.6-4.0cm)IVSd0.9 (0.7-1.1cm) LVDd3.8 (3.9-5.9cm)PWd1.0 (0.7-1.1cm) LVDs2.1 (2.5-4.0cm)FS (%) 43.9 % LVEF (%)75.8 (>50%) M-Mode DIMENSIONS Aortic Root2.90 (2.2-3.7cm)Aortic Cusp Exc.1.20 (1.5-2.0cm) Aortic Valve AoV Peak Juxajvdx966.0cm/sAoV VTI30.3cmAO Peak GR.11mmHg LVOT Peak Rqpjhxso899.0cm/Tommy Mean GR.5mmHgAI P 1/2 [id number] Mitral Valve MV E Uqhzdglk905.0cm/sMV A Osiebxua38.9cm/sE/A ratio1.4 TDI Lateral E' Peak V9.75cm/sMedial E' Peak V7.02cm/sE/Lateral E'11.9 E/Medial E'16.5 Pulmonary Valve PV Peak Ppwmnbvn30.9cm/sPV Peak Grad.3mmHg Tricuspid Valve TR Peak Akrclymo550dx/sRAP KVNQKUDX16smFzYT Peak Gr.53mmHg NLWE66krOv LEFT VENTRICLE The left ventricle is normal size. There is normal left ventricular wall thickness. The left ventricular function is normal. The left ventricular ejection fraction is within the normal range. There is normal LV segmental wall motion. Transmitral Doppler flow pattern is Grade II-pseudonormal filling dynamics. RIGHT VENTRICLE The right ventricle is normal size. There is normal right ventricular wall thickness. The right ventricular systolic function is normal. ATRIA The left atrium size is normal. The right atrium size is normal. AORTIC VALVE The aortic valve is moderately thickened. There is moderate aortic regurgitation. MITRAL VALVE The mitral valve is mildly thickened. Mitral regurgitation is mild. There is no mitral valve stenosis. TRICUSPID VALVE There is moderate tricuspid regurgitation. There is severe pulmonary hypertension. PULMONIC VALVE There is mild pulmonic valvular regurgitation. GREAT VESSELS The aortic root is normal in size. <Conclusion> There is normal left ventricular wall thickness. The left ventricular function is normal. The left ventricular ejection fraction is within the normal range. There is normal LV segmental wall motion. Transmitral Doppler flow pattern is Grade II-pseudonormal filling dynamics. There is moderate aortic regurgitation. Mitral regurgitation is mild. There is moderate tricuspid regurgitation. There is severe pulmonary hypertension.
[2018-11-02] MEDS: Albuterol-Ipratrop 3 mg / 0.5 (3 ml) UD IH SCH ×4 (02:40→19:37)
[2018-11-02] MEDS: Pantoprazole 40 mg EC Tab PO SCH (05:53)
[2018-11-02] MEDS: Metoprolol Succinate 25 mg XL Tab PO SCH (08:05)
[2018-11-02] MEDS: Insulin Reg-HIGH-Coverage SC SCH ×4 (08:06→22:06)
[2018-11-02] MEDS: Insulin Lispro (humaLOG) MIX 75/25(10 ml) SC SCH ×2 (08:06→17:35)
[2018-11-02] MEDS: MethylPREDNISolone 40 mg Vial IV SCH ×2 (10:37→21:04)
[2018-11-02] MEDS: Tolvaptan 15 MG TAB PO SCH (10:43)
[2018-11-02] MEDS: Enoxaparin 30 mg Syringe SC SCH (10:49)
[2018-11-02] MEDS ORDERED: Bisacodyl 5mg EC Tab PO ONE (12:40)
[2018-11-02] MEDS: POLYETHYLENE GLYCOL 3350 17 GM/Dose PACKET PO SCH (12:59)
--- NOTE | 2018-11-02 20:55 | PN ---
DATE: 11/02/2018 SUBJECTIVE: The patient is seen in bed, in no acute distress, and nontoxic. The patient was seen earlier today in 276, bed 1. OBJECTIVE: VITAL SIGNS: Temperature is 97, blood pressure is 119/50, respiratory rate is 22, and heart rate of 104. HEENT: Unremarkable. NECK: Supple. LUNGS: Have decreased breath sounds. HEART: Normal S1 and S2. ABDOMEN: Soft. LABORATORY DATA: Reveals a white count of 14,000 and hemoglobin of 10. Chemistries reveals BUN of 33, creatinine of 1, and procalcitonin 0.15. Urinalysis is noted. Urine for Legionella is negative. Urine cultures negative. Nares MRSA is negative. Blood cultures are negative. ASSESSMENT AND PLAN: This is an 88-year-old female with a history of congestive heart failure, emphysema, admitted with sepsis, community-acquired pneumonia, multifocal pneumonia, ST elevation myocardial infarction, hyponatremia, chronic obstructive lung disease, diabetes, peripheral vascular disease, azithromycin p.o., today is day #8. Review of orders reveals the patient to be on Solu-Medrol and p.o. Zithromax, would complete 10 days. The patient will need of follow imaging until for resolution. We will follow with you. Yuan Alba MD
--- NOTE | 2018-11-03 01:32 | PN ---
DATE: 11/02/2018 SUBJECTIVE: The patient is an 88-year-old, seen and examined, seems to be upset. She states she is tired lying in bed. Cough and congestion seems to be better. PHYSICAL EXAMINATION: VITAL SIGNS: She is afebrile, pulse 92, respirations 22, and blood pressure 119/51. LUNGS: Bilateral fair airflow, occasional expiratory rhonchi with soft crackle. HEART: S1 and S2 audible. ABDOMEN: Soft and nontender. No rebound. No guarding. NEUROLOGIC: The patient is awake and alert and able to communicate. EXTREMITIES: Bilateral legs; no edema. LABORATORY DATA: Blood sugar is 96 . ASSESSMENT: 1. Bilateral pneumonia. 2. Chronic obstructive pulmonary disease. 3. Non-ST elevation myocardial infarction. 4. Leukocytosis seems to be improving. 5. Mild renal insufficiency. 6. History of constipation. PLAN: We will continue the patient on nebulizer treatments. Currently, she is on aspirin 81 daily. Her sugars are being monitored. She is on Lovenox for DVT prophylaxis. She has been started on MiraLax. She is on Protonix 40 daily. We will continue her on IV steroid and physical therapy evaluation. has been requested. We will follow up the patient's CBC and CMP in a.m. Sonya Broosk MD
[2018-11-03] MEDS: Albuterol-Ipratrop 3 mg / 0.5 (3 ml) UD IH SCH ×4 (01:54→20:05)
[2018-11-03] MEDS: Pantoprazole 40 mg EC Tab PO SCH (06:28)
[2018-11-03 08:06] LABS: HEMOGLOBIN 9.7 g/dL (12.0-16.0); LYMPH # 0.8 (1.2-3.4); LYMPH % 5.9 % (22.0-35.0); MEAN CORPUSCULAR HEMOGLOBIN 29.6 pg (25.0-35.0); MEAN PLATELET VOLUME 9.9 fl (7.0-11.0); MONO # 0.2 (0.1-0.6); MONO % 1.6 % (1.0-6.0); PLATELET COUNT 187 10^3/uL (120.0-450.0); RBC 3.28 10^6/uL (3.5-6.1); RED CELL DISTRIBUTION WIDTH 15.5 % (11.5-14.5); WHITE BLOOD COUNT 13.4 10^3/uL (4.5-11.0)
[2018-11-03 08:09] LABS: MEAN CELL VOLUME 92.4 fl (80.0-105.0)
[2018-11-03] MEDS: Insulin Reg-HIGH-Coverage SC SCH ×4 (08:09→22:30)
[2018-11-03] MEDS: Insulin Lispro (humaLOG) MIX 75/25(10 ml) SC SCH ×2 (08:09→17:05)
[2018-11-03 08:15] LABS: ALB/GLOB RATIO 1.4 (1.1-1.8); ALT/SGPT 54 U/L (7-56); AST/SGOT 36 U/L (14-36); BLOOD UREA NITROGEN 39 mg/dL (7-21); CALCIUM 8.7 mg/dL (8.4-10.5); GFR NON-AFRICAN AMERICAN 59
[2018-11-03] MEDS: POLYETHYLENE GLYCOL 3350 17 GM/Dose PACKET PO SCH (09:26)
[2018-11-03] MEDS: MethylPREDNISolone 40 mg Vial IV SCH ×2 (09:26→21:43)
[2018-11-03] MEDS: Metoprolol Succinate 25 mg XL Tab PO SCH (09:26)
[2018-11-03] MEDS: Enoxaparin 30 mg Syringe SC SCH (09:26)
[2018-11-03 10:03] LABS: LYMPHOCYTE 3 % (22.0-35.0); MONOCYTE 5 % (1.0-6.0); NEUTROPHIL 92 % (50.0-70.0)
--- NOTE | 2018-11-03 10:40 | PN ---
DATE: 11/03/2018 CARDIOLOGY FOLLOWUP SUBJECTIVE: The patient denies chest pain. PHYSICAL EXAMINATION: VITAL SIGNS: Blood pressure 121/65, heart rate in the 80s. NECK: Negative JVD. LUNGS: Without rales. HEART: S1 and S2. EXTREMITIES: Without edema. LABORATORY DATA: Not available at this time. IMPRESSION: 1. Pneumonia. 2. Chronic obstructive pulmonary disease. 3. Recent non-ST elevation myocardial infarction. 4. Coronary artery disease. 5. Dyspnea, which has resolved. PLAN: Given these findings, the patient refuses cardiac catheterization. We will treat the patient's acute coronary syndrome medically with aspirin and subcu Lovenox. So far the patient is chest pain free. Vamshi West MD
[2018-11-03 15:01] LABS: ALPHA-1-GLOBULIN (PEP) 0.3 g/dL (0.2-0.3)
--- NOTE | 2018-11-03 23:17 | PN ---
DATE: 11/03/2018 SUBJECTIVE: The patient is seen earlier today in room 276, bed 1. No fevers, no chills. Uneventful night. REVIEW OF SYSTEMS: Reviewed. PHYSICAL EXAMINATION: VITAL SIGNS: Temperature is 97, blood pressure is 120/50, and respiratory rate of 18. HEENT: Unremarkable. NECK: Supple. LUNGS: Decreased breath sounds. HEART: Normal S1 and S2. ABDOMEN: Soft. LABORATORY DATA: Reveals a white count of 13,400, hemoglobin of 9, BUN 39, and creatinine of 0.9. Urinalysis is noted. Serology is noted. ASSESSMENT AND PLAN: This is an 88-year-old female with history of congestive heart failure, emphysema, admitted with sepsis, community-acquired pneumonia, multifocal pneumonia, txk-CP-mpjoicego myocardial infarction and hyponatremia, chronic obstructive lung disease, diabetes, and peripheral vascular disease, on azithromycin day #9. Dr. Vamshi West's note is reviewed. We will discontinue the antibiotics, tomorrows dose. Yuan Alba MD
[2018-11-04 00:12] LABS: BCR-ABL SOURCE BLOOD; P190 BCR-ABL1 NOT DETECTED; P210 BCR-ABL1 NOT DETECTED
--- NOTE | 2018-11-04 01:11 | PN ---
DATE: 11/03/2018 SUBJECTIVE: The patient is an 88-year-old, seems to be doing little better, sitting in chair, was evaluated by therapist, complained of dry mouth and dry nose. PHYSICAL EXAMINATION: VITAL SIGNS: She is afebrile, pulse 84, respiration 18, blood pressure 148/63. LUNGS: Bilaterally improved air flow, occasional expiratory rhonchi. HEART: S1, S2, audible. ABDOMEN: Soft, nontender. No rebound. No guarding. NEUROLOGICAL: The patient is awake and alert, able to communicate. EXTREMITIES: Bilateral legs, no edema. LABORATORY DATA: WBC is 13.4, hemoglobin 9.7, hematocrit 30.3, platelets 187. Chemistry; sodium 133, potassium 5.6, chloride 98, CO2 of 30, BUN 39, creatinine 0.9, blood sugar of 149. Her afternoon blood sugar dropped. She had echocardiogram done that shows normal left ventricular wall thickness. Left ventricular function is normal. Ejection fraction within normal limits. ASSESSMENT: 1. Bilateral pneumonia, resolving. 2. Cyg-JW-igopimray myocardial infarction. 3. History of chronic obstructive pulmonary disease. 4. Hyperkalemia. 5. Non insulin-dependent diabetes. PLAN: I will cut down her morning insulin coverage. She is on DVT prophylaxis. We will cut down her steroid, continue her on beta pat. She is on Zithromax. We will follow up the patient in a.m. Sonya Brooks MD
[2018-11-04] MEDS: Albuterol-Ipratrop 3 mg / 0.5 (3 ml) UD IH SCH ×4 (04:37→20:16)
[2018-11-04] MEDS: Pantoprazole 40 mg EC Tab PO SCH (06:33)
[2018-11-04 07:48] LABS: BASO # 0.01 K/mm3 (0.0-2.0); BASO % 0.1 % (0.0-3.0); HEMOGLOBIN 10.2 g/dL (12.0-16.0); LYMPH % 7.6 % (22.0-35.0); MEAN CELL VOLUME 92.2 fl (80.0-105.0); MEAN CORPUSCULAR HEMOGLOBIN 29.3 pg (25.0-35.0); MEAN CORPUSCULAR HGB CONC 31.8 g/dl (31.0-37.0); MEAN PLATELET VOLUME 10.1 fl (7.0-11.0); MONO # 0.4 (0.1-0.6); MONO % 3.2 % (1.0-6.0); RBC 3.48 10^6/uL (3.5-6.1); RED CELL DISTRIBUTION WIDTH 15.6 % (11.5-14.5); WHITE BLOOD COUNT 13.6 10^3/uL (4.5-11.0)
[2018-11-04] MEDS: Metoprolol Succinate 25 mg XL Tab PO SCH (08:02)
[2018-11-04] MEDS: Insulin Lispro (humaLOG) MIX 75/25(10 ml) SC SCH ×2 (08:02→18:00)
[2018-11-04] MEDS: Insulin Reg-HIGH-Coverage SC SCH ×4 (08:03→22:09)
[2018-11-04 08:14] LABS: ALB/GLOB RATIO 1.4 (1.1-1.8); ALBUMIN 3.1 g/dL (3.0-4.8); ALT/SGPT 52 U/L (7-56); AST/SGOT 29 U/L (14-36); BLOOD UREA NITROGEN 40 mg/dL (7-21); CALCIUM 8.8 mg/dL (8.4-10.5); GFR NON-AFRICAN AMERICAN > 60
[2018-11-04] MEDS: POLYETHYLENE GLYCOL 3350 17 GM/Dose PACKET PO SCH (09:39)
[2018-11-04] MEDS: MethylPREDNISolone 40 mg Vial IV SCH (09:40)
[2018-11-04] MEDS: Enoxaparin 30 mg Syringe SC SCH (09:40)
--- NOTE | 2018-11-04 09:56 | PN ---
DATE: 11/04/2018 SUBJECTIVE: She is comfortable in bed in no acute distress. She had leukocytosis of 34,000 white count on admission, leukocytosis has declined to 13,000 now. Flow cytometry and peripheral blood did not show any malignant cells. BCR-ABL for CML was negative. She had multifocal pneumonia during this admission. REVIEW OF SYSTEMS: As per HPI. A 12-point review of systems reviewed negative. PHYSICAL EXAMINATION: GENERAL: Comfortable in bed, in no acute distress. VITAL SIGNS: Temperature 98.5, heart rate 86 per minute, blood pressure 120/70, oxygen saturation 98% on oxygen by nasal cannula. LUNGS: Bilateral air entry present. CARDIOVASCULAR: S1 and S2 normal. No murmur, no gallop. ABDOMEN: Soft, nontender. No hepatosplenomegaly. EXTREMITIES: No edema. CENTRAL NERVOUS SYSTEM: Alert and oriented x3. No focal sensory motor deficit. LABORATORY DATA: White count 13.6, hemoglobin 10.2, hematocrit 32, platelet 206. Sodium 133, potassium 6.1, creatinine 0.8. Serum protein electrophoresis is pending. MEDICATIONS: Reviewed. ASSESSMENT AND PLAN: 1. Leukocytosis. 2. Anemia. 3. Multifocal pneumonia. 4. Chronic obstructive pulmonary disease. 5. Non-ST elevation myocardial infarction. PLAN: Flow cytometry for leukemia lymphoma panel is negative. BCR-ABL by PCR is negative ruling out CML. Leukocytosis is likely reactive in nature due to infection. Hemoglobin and hematocrit stable at . Leukocytosis declined to 13,000, it was 34,000 on admission. Platelet count normal. Iron studies are within normal limits. Serum protein electrophoresis is pending. TSH 0.49. Thank you Dr. Brooks for allowing us to participate in Mr. Cantrell's care. Rita Guevara MD
--- NOTE | 2018-11-04 10:33 | PN ---
DATE: 11/04/2018 SUBJECTIVE: The patient denies chest pain. Her breathing is markedly improved. PHYSICAL EXAMINATION: VITAL SIGNS: Blood pressure is 137/64, heart rate in the 80s. NECK: Negative JVD. LUNGS: Bilateral rhonchi. HEART: S1 and S2. EXTREMITIES: Without change. LABORATORY DATA: Hemoglobin 10.2. Chemistries, BUN and creatinine 40 and 0.8. Potassium is 6.1 today. IMPRESSION: 1. Exacerbation of chronic obstructive pulmonary disease. 2. Non-ST elevation myocardial infarction. 3. Hyperkalemia. 4. Coronary artery disease. 5. Resolution of dyspnea. PLAN: Given these findings, I am going to obtain stat repeat potassium. We will continue medical therapy for her non-ST elevation myocardial infarction. The patient has refused cardiac catheterization. We will continue her aspirin and statin therapy and low-dose beta blockers. Vamshi West MD
[2018-11-04 11:45] LABS: ALB/GLOB RATIO 1.4 (1.1-1.8); ALBUMIN 3.4 g/dL (3.0-4.8); ALT/SGPT 49 U/L (7-56); AST/SGOT 27 U/L (14-36); BLOOD UREA NITROGEN 38 mg/dL (7-21); CALCIUM 8.9 mg/dL (8.4-10.5); GFR NON-AFRICAN AMERICAN > 60
--- NOTE | 2018-11-04 16:26 | PN ---
DATE: 11/04/2018 SUBJECTIVE: The patient is in bed in no acute distress, nontoxic. PHYSICAL EXAMINATION VITAL SIGNS: On exam, temperature is 98, blood pressure is 130/60 and respirations rate 16. HEENT: Unremarkable. NECK: Supple. LUNGS: Have decreased breath sounds. HEART: Normal S1 and S2. ABDOMEN: Soft and nontender. LABORATORY EXAMINATION: Reveals a white count of 13,600 and hemoglobin of 10. BUN of 38 and creatinine of 0.8. Microbiology is noted. ASSESSMENT AND PLAN: This is an 88-year-old female with history of congestive heart failure and emphysema, admitted with sepsis, community-acquired pneumonia, multifocal pneumonia and vmy-EZ-qkqvuzwhi myocardial infarction, hyponatremia, chronic obstructive lung disease, diabetes, peripheral vascular disease and has completed 10 days of Zithromax. We will discontinue Zithromax. The patient is at risk for developing nosocomial infections. Yuan Alba MD
[2018-11-05 01:40] VITALS: O2SAT 96
[2018-11-05] MEDS: Albuterol-Ipratrop 3 mg / 0.5 (3 ml) UD IH SCH ×4 (02:01→21:04)
[2018-11-05] MEDS: Pantoprazole 40 mg EC Tab PO SCH (06:02)
[2018-11-05 08:27] LABS: ALB/GLOB RATIO 1.4 (1.1-1.8); ALT/SGPT 52 U/L (7-56); AST/SGOT 33 U/L (14-36); BLOOD UREA NITROGEN 30 mg/dL (7-21); CALCIUM 8.4 mg/dL (8.4-10.5); GFR NON-AFRICAN AMERICAN > 60
[2018-11-05] MEDS: Insulin Reg-HIGH-Coverage SC SCH ×3 (08:41→17:15)
[2018-11-05] MEDS: Insulin Lispro (humaLOG) MIX 75/25(10 ml) SC SCH ×2 (08:43→17:44)
[2018-11-05] MEDS: Metoprolol Succinate 25 mg XL Tab PO SCH (08:44)
--- NOTE | 2018-11-05 08:47 | PN ---
DATE: 11/04/2018 SUBJECTIVE: The patient is an 88-year-old, seen and examined. She states her breathing is lot better, but she feels very fatigue. Had couple of bowel movements yesterday. PHYSICAL EXAMINATION: On examination today; GENERAL: She is awake and alert; able to communicate. VITAL SIGNS: She is afebrile, pulse 76, respiration 19, and blood pressure 137/64. LUNGS: Bilateral better air flow; few rhonchi. HEART: S1 and S2 audible. ABDOMEN: Soft and nontender. No rebound. No guarding. NEUROLOGIC: She is awake and alert; able to communicate. EXTREMITIES: Bilateral leg; no edema. LABORATORY DATA: WBC 13.6, hemoglobin 10.2, hematocrit 32, and platelet of 206. Chemistry; sodium 136, potassium 4.8, chloride 97, CO2 of 33, BUN 38, creatinine 0.8, and blood sugar of 190. ASSESSMENT: 1. Bilateral pneumonia, improved. 2. Chronic obstructive pulmonary disease exacerbation. 3. Zjy-UQ-kjxqkrokr myocardial infarction. 4. Mild renal insufficiency. 5. Hyperkalemia. 6. Constipation, that is resolved. PLAN: We will continue the patient on nebulizer treatment. She is on aspirin 81 daily, before the dinner time. We will continue her on metoprolol; switch her prednisone to p.o. She is on MiraLax. We will give her dose of . We will discontinue telemetry. I will discontinue Lovenox and start her on SCD's. We will follow up her CMP in a.m. and possible discharge plan in a.m. Sonya Brooks MD
[2018-11-05] MEDS: POLYETHYLENE GLYCOL 3350 17 GM/Dose PACKET PO SCH (09:22)
[2018-11-05] MEDS: Enoxaparin 30 mg Syringe SC SCH (09:22)
[2018-11-05] MEDS: Saliva Substitute 44.3 ML PO SCH ×3 (09:23→17:46)
--- NOTE | 2018-11-05 12:00 | PN ---
DATE: 11/05/2018 SUBJECTIVE: The patient is chest pain free. PHYSICAL EXAMINATION: VITAL SIGNS: Blood pressure is 138/63, heart rate in the 90s. NECK: Negative JVD. LUNGS: Without rales. HEART: S1, S2. EXTREMITIES: Without edema. LABORATORY DATA: Hemoglobin is 10.2, glucose is 325. IMPRESSION: 1. Exacerbation of chronic obstructive pulmonary disease. 2. Pneumonia. 3. Non-ST elevation myocardial infarction. 4. Coronary artery disease. I had discussion with the patient as well as her son at the bedside. I have outlined here non-ST elevation myocardial infarction and the options of cardiac catheterization versus medical therapy including risks, benefits of both. The patient elects only for medical therapy. The patient is currently on the correct medications. No further cardiac workup is indicated at this time. Vamshi West MD
[2018-11-05 12:43] VITALS: RESP 18
[2018-11-05 18:16] VITALS: BP 120/62; PULSE 73; TEMP 98
--- NOTE | 2018-11-05 23:10 | DS ---
HISTORY OF PRESENT ILLNESS: The patient is an 88-year-old who came to the emergency room because of increasing shortness of breath. The patient was treated as outpatient for bronchitis. She was given Z-Daryl with some steroid with no significant relief. Her shortness of breath got worse, so she came to the ER on 10/26. HOSPITAL COURSE: She was found to have bilateral pneumonia. She was given IV steroid, IV antibiotic and blood sugar was monitored. The patient had some difficulty swallowing, so she was initially put on nectar thick and puree diet which she started to tolerate better. She has been on steroids that was tapered down slowly. She finished her course of antibiotic for 10 days. ID was also following the patient. Her antibiotic was discontinued after 10 days, and she had tapering dose of steroid. Doing very well, seems to be deconditioned, has difficulty walking, so she is being sent to [facility] in [place]. PHYSICAL EXAMINATION: GENERAL: Today, she looks much better and less shortness of breath. VITAL SIGNS: She is afebrile, pulse 73, respirations 18, blood pressure 120/62. LUNGS: Bilateral fair airflow. No rhonchi or crackle. HEART: S1 and S2 audible. ABDOMEN: Soft and nontender. No rebound. No guarding. NEUROLOGIC: The patient is awake and alert, able to communicate. LABORATORY DATA: Blood sugar is 223. Today; sodium 134, potassium 5.3, chloride 91, CO2 of 38, BUN of 30, creatinine of 0.7. ASSESSMENT: 1. Bilateral pneumonia, resolved. 2. Hjf-BY-uicoldept myocardial infarction, seen by Dr. West, advised to treat her conservatively. We had a long discussion with the patient and his family. 3. Chronic obstructive pulmonary disease exacerbation. 4. Steroid-induced diabetes. 5. Chronic anemia. 6. Intermittent constipation. PLAN: The patient is currently stable. We will continue on nebulizer treatment. We will give her tapering dose of steroids. She will be on prednisone 20 twice a day for three days and then daily for 5 days, and we will continue on aspirin. She is on insulin 75/25, 10 units before breakfast and 5 units before dinner. Continue her Protonix and she is on beta-pat. She will be transferred to subacute rehab. Once she is discharged, she will follow up with Dr. Kyle. Sonya Brooks MD [facility] # [id number]
--- NOTE | 2018-11-06 01:40 | PN ---
DATE: 11/05/2018 SUBJECTIVE: The patient is in bed, in no acute distress, nontoxic. PHYSICAL EXAMINATION: VITAL SIGNS: Temperature is 98, blood pressure is 120/60, and respiratory rate of 18. HEENT: Unremarkable. NECK: Supple. LUNGS: Decreased breath sounds. HEART: Normal S1 and S2. ABDOMEN: Soft. LABORATORY DATA: Examination revealed a white count of 13,000, hemoglobin of 10, platelets of 206, BUN of 30, and creatinine 0.7. Urinalysis is noted. Immunology is noted. Serology is noted. Urine Legionella is negative. MEDICATIONS: Review of orders reveals that the patient is to be off of the antibiotics. The patient is on p.o. prednisone. ASSESSMENT AND PLAN: An 88-year-old female with history of congestive heart failure, emphysema, admitted with sepsis, community-acquired pneumonia, multifocal pneumonia, non-ST elevation myocardial infarction, hyponatremia, chronic obstructive lung disease, diabetes, and peripheral vascular disease and has completed 10 days of Zithromax, currently off of antibiotics. The patient is at risk for developing nosocomial infections. We will follow with you. Yuan Alba MD
== END 2018-11-05 22:09 | DRG 871 ==
LOC: ED 14:06 → ERH 15:50 → 2RSO 21:45
PROVIDERS: ADMIT Internal Medicine; ATTEND Internal Medicine
PROC: 5A09357 Assistance with Respiratory Ventilation, Less than 24 Consecutive Hours, Continuous Positive Airway Pressure (ICD-10-PCS; principal; 2018-10-27)
DX: A41.9 Sepsis, unspecified organism (principal); I21.4 Non-ST elevation (NSTEMI) myocardial infarction; J18.9 Pneumonia, unspecified organism; J44.0 Chronic obstructive pulmonary disease with (acute) lower respiratory infection; J44.1 Chronic obstructive pulmonary disease with (acute) exacerbation; I50.22 Chronic systolic (congestive) heart failure; E87.1 Hypo-osmolality and hyponatremia; E11.51 Type 2 diabetes mellitus with diabetic peripheral angiopathy without gangrene; I11.0 Hypertensive heart disease with heart failure; D72.829 Elevated white blood cell count, unspecified; T38.0X5A Adverse effect of glucocorticoids and synthetic analogues, initial encounter; D64.9 Anemia, unspecified; E78.5 Hyperlipidemia, unspecified; I25.10 Atherosclerotic heart disease of native coronary artery without angina pectoris; E87.5 Hyperkalemia; I27.20 Pulmonary hypertension, unspecified; E78.00 Pure hypercholesterolemia, unspecified; M54.9 Dorsalgia, unspecified; K59.00 Constipation, unspecified; N28.9 Disorder of kidney and ureter, unspecified; F41.9 Anxiety disorder, unspecified; Z79.82 Long term (current) use of aspirin; Z87.891 Personal history of nicotine dependence; Z79.84 Long term (current) use of oral hypoglycemic drugs